=== PATIENT | male | born 1945 | race American Indian/Alaskan Native ===

== ENCOUNTER 2020-10-17 05:25 | Day surgery (SDC) | payer MEDICARE, OTHER ==
[~2020-10-17 05:25] MED LIST: Dextrose 5%-0.45% NaCl 1,000 ML IV SCH; Midazolam 1 MG/ML 2 ML SDV ONE; Sodium Chloride 0.9% 10 ML Syringe FLUSH PRN; fentaNYL 100 MCG/2 ML SDV ONE
[2020-10-17] MEDS ORDERED: Midazolam 1 MG/ML 2 ML SDV IV ONE ×3 (05:26→06:46)
[2020-10-17] MEDS ORDERED: fentaNYL 100 MCG/2 ML SDV IV ONE ×3 (05:26→06:44)
[2020-10-17] MEDS ORDERED: Dextrose 5%-0.45% NaCl 1,000 ML IV SCH (05:30)
--- NOTE | 2020-10-17 07:40 | OR ---
DATE: 10/17/2020 PROCEDURE PERFORMED: Esophagogastroduodenoscopy and multiple pinch biopsies. INSTRUMENT USED: [id number]-HQ190 Olympus video panendoscope. PREMEDICATIONS: No oral or topical anesthesia used. Fentanyl 100 mcg intravenous, Versed 2 mg intravenous. Nasal O2 cannula. The procedure was done under pulse oximetry, BP recording, and bus monitor. INDICATION: The patient with multiple illnesses, on numerous medications and recent CT suggestive of thickened esophageal wall, malignancy under consideration. Esophagogastroduodenoscopy is performed for detection of any active erosive lesions, Almanzar esophagus and/or malignancy also under consideration, H pylori status to be determined, endoscopic hemostasis therapy if needed. DESCRIPTION OF PROCEDURE: The scope was passed with ease. Adequate visualization of the esophagus was made from proximal to distal areas. No upper esophageal lesions identified. No distal esophageal stricture. No uphill or downhill esophageal varices. No Betzy-Minor tear. No evidence of erosive esophagitis by [place] criteria. No esophageal polyp or tumor mass identified. Z-line was seen at around 40 cm distal to the oral verge. No proximal gastric varices noted. Gastric fundus examination by retroflexion showed no polypoid lesions. No gastric ulcer, malignant mass, or vascular ectasia identified. Duodenal bulb showed no ulcer. Visualized second part of the duodenum was unremarkable. Multiple pinch biopsies were taken from the gastric antrum and proximal body and sent for PyloriTek test for H pylori, and if negative in an hour, the tissue is to be sent for histopathology. No bleeding was noted from any of the visualized areas at the completion of examination. Photographs were taken of the duodenal bulb, gastric antrum, fundus, and distal esophagus. IMPRESSION: Normal study. The patient tolerated the procedure well. [facility] /[id number]
--- NOTE | 2020-10-17 08:34 | LETTER ---
10/17/2020 RE: KAVON HAINES : 1945 Oscar Brown MD [address] [place] [address] Brown: Mr. Kavon Haines had esophagogastroduodenoscopy done this morning, and he tolerated the procedure well. I herewith send a copy of the endoscopy note and photographs for your review. Thank you. Sincerely, [facility] /[id number]
--- NOTE | 2020-10-17 08:53 | LETTER ---
10/17/2020 RE: RUTHY HAINES : 1945 Dee Modi PA-C [address] [place] [address] Dear Ms. Modi: Mr. Ruthy Haines had esophagogastroduodenoscopy done this morning, and he tolerated the procedure well. I herewith send a copy of the endoscopy note and photographs for your review. Thank you. Sincerely, [facility] /[id number]
[2020-10-17 09:29] VITALS: BP 137/65; PULSE 69
== END 2020-10-17 08:58 | disposition home or self-care (01) ==
LOC: DL.ENDO 05:25
PROVIDERS: ATTEND Internal Medicine Gastroenterology
DX: K22.8 Other specified diseases of esophagus (principal); E66.09 Other obesity due to excess calories; E78.5 Hyperlipidemia, unspecified; I25.10 Atherosclerotic heart disease of native coronary artery without angina pectoris; E11.43 Type 2 diabetes mellitus with diabetic autonomic (poly)neuropathy; K31.84 Gastroparesis; E11.22 Type 2 diabetes mellitus with diabetic chronic kidney disease; I48.91 Unspecified atrial fibrillation; I12.9 Hypertensive chronic kidney disease with stage 1 through stage 4 chronic kidney disease, or unspecified chronic kidney disease; N18.9 Chronic kidney disease, unspecified; J44.9 Chronic obstructive pulmonary disease, unspecified; G47.33 Obstructive sleep apnea (adult) (pediatric); Z79.02 Long term (current) use of antithrombotics/antiplatelets; Z87.891 Personal history of nicotine dependence; Z95.1 Presence of aortocoronary bypass graft; Z86.010 Personal history of colon polyps; Z68.37 Body mass index [BMI] 37.0-37.9, adult
CPT/HCPCS: 87077; J2250; J3010; J7042

== ENCOUNTER 2021-05-16 13:48 | Emergency (ER) | payer MEDICARE, OTHER ==
[2021-05-16] MEDS ORDERED: Sodium Chloride 0.9% 10 ML Syringe FLUSH PRN (14:29)
[2021-05-16] MEDS ORDERED: Albuterol 0.083% 2.5 MG/3 ML Neb Soln NEB ONE ×2 (14:32→15:32)
[2021-05-16 14:37] VITALS: BP 135/67; PULSE 95
--- NOTE | 2021-05-16 14:40 | EDM.PDOC ---
ED HPI GENERAL MEDICAL PROBLEM - General Stated Complaint: HISTORY OF BREATHING ISSUES / COPD Time Seen by Provider: 05/16/21 14:35 Source of Information: Reports: Patient History Limitations: Reports: No Limitations - History of Present Illness INITIAL COMMENTS - FREE TEXT/NARRATIVE: 76 y/o M c/o Sob for unknown exact amount of time at least the last several days. Has not been feverish or coughing. Has not been exposed to COVID. Has not been around anyone sick. Is fully vaccinated with Moderna. Hx of COPD, CHF, Type II diabetes. Is on metformin. States he has been eating and drinking ok. Denies vision prob, cp, abd pn, pelvic pain, difficulty voiding, ext pain, leg swelling, recent trauma, drugs, etoh. - Related Data Allergies Allergy/AdvReac Type Severity Reaction Status Date / Time tiotropium Allergy Other Verified 10/17/20 06:06 [From Spiriva with HandiHaler] Home Meds: Home Meds Clopidogrel [Plavix] 75 mg PO DAILY 09/17/13 [History] Insulin Detemir [Levemir] 25 unit SQ BID 09/17/13 [History] Simvastatin [Zocor] 10 mg PO BEDTIME 09/17/13 [History] Multivitamin [Multi-Vitamin Daily] 1 tab PO DAILY 01/05/15 [History] Albuterol/Ipratropium [Combivent Respimat] 2 puff INH ASDIRECTED 10/09/20 [History] Bumetanide [Bumex] 1 mg PO DAILY 10/09/20 [History] Formoterol [Perforomist] 2 puff INH BID 10/09/20 [History] Insulin Aspart [NovoLOG] 62 - 64 units SQ BID 10/09/20 [History] Ipratropium/Albuterol Sulfate [Iprat-Albut 0.5-3(2.5) mg/3 ml] 2 puff INH Q6H PRN 10/09/20 [History] Pioglitazone [Actos] 15 mg PO DAILY 10/09/20 [History] Saxagliptin HCl [Onglyza] 5 mg PO DAILY 10/09/20 [History] metFORMIN HCl [Metformin HCl] 500 mg PO BIDMEALS 10/09/20 [History] Alogliptin Benzoate [Alogliptin] 25 mg PO DAILY 10/17/20 [History] Iron Polysaccharide Complex [Poly-Iron] 150 mg PO BID 10/17/20 [History] Past Medical History HEENT History: Reports: Hard of Hearing, Impaired Vision, Retinal Detachment, Other (See Below) Other HEENT History: wears glasses Cardiovascular History: Reports: Afib, CAD, Heart Failure, High Cholesterol, Hypertension Respiratory History: Reports: Asthma, COPD, Sleep Apnea, Other (See Below) Other Respiratory History: pulmonary nodules Gastrointestinal History: Reports: None Genitourinary History: Reports: None Musculoskeletal History: Reports: None Neurological History: Reports: CVA Psychiatric History: Reports: None Endocrine/Metabolic History: Reports: Diabetes, Type I, Diabetes, Type II, Obesity/BMI 30+ Hematologic History: Reports: Blood Transfusion(s) Immunologic History: Reports: None Oncologic (Cancer) History: Reports: None Dermatologic History: Reports: Other (See Below) Other Dermatologic History: [id number] SYNDROME - Infectious Disease History Infectious Disease History: Reports: Chicken Pox, Mumps - Past Surgical History Head Surgeries/Procedures: Reports: None HEENT Surgical History: Reports: Cataract Surgery, Detached Retina Cardiovascular Surgical History: Reports: Coronary Artery Bypass GI Surgical History: Reports: Colonoscopy Male Surgical History: Reports: None Musculoskeletal Surgical History: Reports: None Social & Family History - Family History Family Medical History: No Pertinent Family History - Caffeine Use Caffeine Use: Reports: Coffee - Living Situation & Occupation Living situation: Reports: with Family Occupation: Disabled ED ROS GENERAL - Review of Systems Review Of Systems: Comprehensive ROS is negative, except as noted in HPI. Constitutional: Reports: No Symptoms HEENT: Reports: No Symptoms Respiratory: Reports: No Symptoms Cardiovascular: Reports: No Symptoms Endocrine: Reports: No Symptoms GI/Abdominal: Reports: No Symptoms : Reports: No Symptoms Musculoskeletal: Reports: No Symptoms Skin: Reports: No Symptoms Neurological: Reports: No Symptoms Psychiatric: Reports: No Symptoms Hematologic/Lymphatic: Reports: No Symptoms Immunologic: Reports: No Symptoms ED EXAM, GENERAL - Physical Exam Exam: See Below Exam Limited By: No Limitations General Appearance: Alert, Mild Distress Eye Exam: Bilateral Eye: PERRL Nose: Normal Inspection, Normal Mucosa, No Blood Throat/Mouth: Other (dry oropharynx, tongue dry and furrowed) Head: Atraumatic, Normocephalic Neck: Supple, Non-Tender. No: Lymphadenopathy (L), Lymphadenopathy (R) Respiratory/Chest: No Accessory Muscle Use, Chest Non-Tender, Other (tachypneic, diminished lung sounds throughout) Cardiovascular: Normal Peripheral Pulses, Regular Rate, Rhythm GI/Abdominal: Other (obese abd, non tender to palpation) (Male) Exam: Deferred Rectal (Males) Exam: Deferred Back Exam: Normal Inspection, Full Range of Motion Extremities: Normal Inspection, Normal Range of Motion, Non-Tender, Normal Capillary Refill, No Pedal Edema Neurological: Alert, Oriented, Normal Cognition Psychiatric: Normal Affect, Normal Mood Skin Exam: Warm, Dry, Intact #1 Interpretation EKG Date: 05/16/21 Time: 14:45 Rhythm: Other (sinus rhythm) [place]: Normal P-Wave: Present QRS: RBBB ST-T: Normal QT: Normal Course - Vital Signs Last Recorded V/S: Last Vital Signs Temp 99.5 F 05/16/21 14:34 Pulse 95 05/16/21 14:34 Resp 22 H 05/16/21 14:34 BP 135/67 05/16/21 14:34 Pulse Ox 80 L 05/16/21 14:34 - Orders/Labs/Meds Orders: Active Orders 24 hr Category Date Time Status Peripheral IV Insertion Adult [OM.PC] Routine Oth 05/16/21 14:29 Ordered Labs: Laboratory Tests 05/16/21 05/16/21 05/16/21 Range/Units 14:31 14:50 14:50 WBC 9.8 (5.0-10.0) 10^3/uL RBC 4.02 L (4.6-6.2) 10^6/uL Hgb 12.0 L D (14.0-18.0) g/dL Hct 37.7 L (40.0-54.0) % MCV 93.8 D (80-100) fL MCH 29.9 (27.0-34.0) pg MCHC 31.8 L (33.0-35.0) g/dL Plt Count 221 D (150-450) 10^3/uL Neut % (Auto) 79.4 H (42.2-75.2) % Lymph % (Auto) 7.5 L (20.5-50.1) % [place] % (Auto) 12.5 H (2-8) % Eos % (Auto) 0.4 L (1.0-3.0) % Baso % (Auto) 0.2 (0.0-1.0) % Sodium 140 (136-145) mmol/L Potassium 3.7 (3.5-5.1) mmol/L Chloride 100 (98-107) mmol/L Carbon Dioxide 29 (21-32) mmol/L Anion Gap 14.7 H (7-13) mEq/L BUN 15 (7-18) mg/dL Creatinine 1.15 (0.70-1.30) mg/dL Est Cr Clr Drug Dosing 58.19 mL/min Estimated GFR (MDRD) > 60 BUN/Creatinine Ratio 13.0 (No establ ref range) Glucose 112 H (70-99) mg/dL Lactic Acid (0.4-2.0) mmol/L Calcium 8.4 L (8.5-10.1) mg/dL Magnesium 1.7 L (1.8-2.4) mg/dL Total Bilirubin 0.4 (0.2-1.0) mg/dL AST 47 H (15-37) U/L ALT 64 H (16-63) U/L Alkaline Phosphatase 76 (46-116) U/L C-Reactive Protein 8.8 H (0.0-0.9) mg/dL B-Natriuretic Peptide 94 (0-100) pg/ml Total Protein 7.9 (6.4-8.2) g/dL Albumin 3.1 L (3.4-5.0) g/dL Globulin 4.8 Albumin/Globulin Ratio 0.65 Influenza Type A RNA Positive H (NEGATIVE) Influenza Type B RNA Negative (NEGATIVE) SARS-CoV-2 RNA (JAVIER) Negative (NEGATIVE) 05/16/21 Range/Units 14:50 WBC (5.0-10.0) 10^3/uL RBC (4.6-6.2) 10^6/uL Hgb (14.0-18.0) g/dL Hct (40.0-54.0) % MCV (80-100) fL MCH (27.0-34.0) pg MCHC (33.0-35.0) g/dL Plt Count (150-450) 10^3/uL Neut % (Auto) (42.2-75.2) % Lymph % (Auto) (20.5-50.1) % [place] % (Auto) (2-8) % Eos % (Auto) (1.0-3.0) % Baso % (Auto) (0.0-1.0) % Sodium (136-145) mmol/L Potassium (3.5-5.1) mmol/L Chloride (98-107) mmol/L Carbon Dioxide (21-32) mmol/L Anion Gap (7-13) mEq/L BUN (7-18) mg/dL Creatinine (0.70-1.30) mg/dL Est Cr Clr Drug Dosing mL/min Estimated GFR (MDRD) BUN/Creatinine Ratio (No establ ref range) Glucose (70-99) mg/dL Lactic Acid 1.1 (0.4-2.0) mmol/L Calcium (8.5-10.1) mg/dL Magnesium (1.8-2.4) mg/dL Total Bilirubin (0.2-1.0) mg/dL AST (15-37) U/L ALT (16-63) U/L Alkaline Phosphatase (46-116) U/L C-Reactive Protein (0.0-0.9) mg/dL B-Natriuretic Peptide (0-100) pg/ml Total Protein (6.4-8.2) g/dL Albumin (3.4-5.0) g/dL Globulin Albumin/Globulin Ratio Influenza Type A RNA (NEGATIVE) Influenza Type B RNA (NEGATIVE) SARS-CoV-2 RNA (JAVIER) (NEGATIVE) Meds: Medications Discontinued Medications Generic Name Dose Route Start Last Admin Trade Name Freq PRN Reason Stop Dose Admin Albuterol 5 mg 05/16/21 14:32 05/16/21 14:50 Albuterol 0.083% 2.5 Mg/3 Ml Neb [address] [facility] 05/16/21 14:33 5 mg ONETIME ONE Administration Albuterol 5 mg 05/16/21 15:32 05/16/21 15:49 Albuterol 0.083% 2.5 Mg/3 M[address] [facility] 05/16/21 15:33 5 mg ONETIME ONE Administration Sodium Chloride 10 ml 05/16/21 14:29 05/16/21 14:58 Sodium Chloride 0.9% 10 Ml Syringe FLUSH 10 ml ASDIRECTED PRN Administration Keep Vein Open - Re-Assessments/Exams Free Text/Narrative Re-Assessment/Exam: 05/16/21 15:52 The pt is positive for influenza and has a mild copd exacerbation. His oxygen saturation has improved with albuterol nebs and he feels safe to go home. As the exact onset of influeza symptoms cannot be determined I will not ut the pt on Tamiflu. I explained the exam and lab results with the pt and he verbalized understanding. I instructed him to continue his neb treatments at home and to follow up in clinic or return to the ER if there are any new symptoms or concerns. Departure - Departure Time of Disposition: 15:55 Disposition: Home, Self-Care 01 Condition: Fair Clinical Impression: Influenza A, COPD exacerbation - Discharge Information *PRESCRIPTION DRUG MONITORING PROGRAM REVIEWED*: Not Applicable *COPY OF PRESCRIPTION DRUG MONITORING REPORT IN PATIENT [place]: Not Applicable Instructions: Influenza, Adult Forms: ED Department Discharge Additional Instructions: You have influenza A and had a mild copd exacerbation. Use tylenol and Ibuprofen for fever and pain control as needed. Drink plenty of fluids to maintain hydration. Continue to use your albuterol nebs at home. If any new symptoms or concerns develop contact your primary care facility or return to the ER. Sepsis Event Note (ED) - Focused Exam Vital Signs: Vital Signs Temp Pulse Resp BP Pulse Ox 05/16/21 14:34 99.5 F 95 22 H 135/67 80 L - My Orders Last 24 Hours: My Active Orders 05/16/21 14:29 Peripheral IV Insertion Adult [OM.PC] Routine - Assessment/Plan Last 24 Hours: My Active Orders 05/16/21 14:29 Peripheral IV Insertion Adult [OM.PC] Routine
--- NOTE | 2021-05-16 15:14 | CR ---
PROCEDURE INFORMATION: Exam: XR Chest Exam date and time: 05/16/2021 2:56 PM Age: 76 years old Clinical indication: Shortness of breath; Additional info: SOB TECHNIQUE: Imaging protocol: XR of the chest. Views: 1 view. COMPARISON: CT Chest wo Cont 10/22/2020 1:26 PM FINDINGS: Lungs: Pleural thickening right lower lung. Mild bilateral interstitial prominence worse on the right. Pleural spaces: See "Lungs" finding. Heart/Mediastinum: Unremarkable. No cardiomegaly. Bones/joints: Sternotomy. IMPRESSION: Mild bilateral interstitial prominence, worse on the right could be due to infiltrate or effusion.
[2021-05-16 15:18] LABS: ANION GAP 14.7 mEq/L (7-13); CHLORIDE,CL 100 mmol/L (98-107); SODIUM,NA 140 mmol/L (136-145)
[2021-05-16 15:20] LABS: CORONAVIRUS COVID-19 NAA NEGATIVE (NEGATIVE)
== END 2021-05-16 16:06 | disposition home or self-care (01) ==
LOC: DL.ED 13:48
DX: J10.1 Influenza due to other identified influenza virus with other respiratory manifestations (principal); J44.1 Chronic obstructive pulmonary disease with (acute) exacerbation; I48.91 Unspecified atrial fibrillation; I11.0 Hypertensive heart disease with heart failure; I50.9 Heart failure, unspecified; E11.9 Type 2 diabetes mellitus without complications; E66.9 Obesity, unspecified; Z86.73 Personal history of transient ischemic attack (TIA), and cerebral infarction without residual deficits; Z68.30 Body mass index [BMI] 30.0-30.9, adult; Z88.8 Allergy status to other drugs, medicaments and biological substances; Z79.02 Long term (current) use of antithrombotics/antiplatelets; Z79.4 Long term (current) use of insulin; Z20.822 Contact with and (suspected) exposure to COVID-19
CPT/HCPCS: 0240U; 36415; 71045; 80053; 83605; 83735; 83880; 85025; 86140; 93005; 94640; 99285; J7613-GY

== ENCOUNTER 2021-07-26 13:13 | Emergency (ER) | payer MEDICARE, OTHER ==
[2021-07-26 13:45] VITALS: BP 167/76; PULSE 80
[2021-07-26 14:08] LABS: CORONAVIRUS COVID-19 NAA POSITIVE (NEGATIVE)
[2021-07-26] MEDS ORDERED: Benzocaine 20% Topical Spray UD MUCMEM ONE (14:29)
== END 2021-07-26 14:59 | disposition home or self-care (01) ==
LOC: DL.ED 13:13
DX: J02.9 Acute pharyngitis, unspecified (principal); I48.91 Unspecified atrial fibrillation; I25.10 Atherosclerotic heart disease of native coronary artery without angina pectoris; E11.9 Type 2 diabetes mellitus without complications; J44.9 Chronic obstructive pulmonary disease, unspecified; E66.9 Obesity, unspecified; Z68.31 Body mass index [BMI] 31.0-31.9, adult; Z86.73 Personal history of transient ischemic attack (TIA), and cerebral infarction without residual deficits; Z88.8 Allergy status to other drugs, medicaments and biological substances; Z79.4 Long term (current) use of insulin; Z79.02 Long term (current) use of antithrombotics/antiplatelets; Z79.899 Other long term (current) drug therapy; Z20.822 Contact with and (suspected) exposure to COVID-19
CPT/HCPCS: 0240U; 87081; 87430; 99283; A9270

== ENCOUNTER 2021-12-29 09:59 | Emergency (ER) | payer MEDICARE, OTHER ==
[2021-12-29 10:21] VITALS: BP 133/53
[2021-12-29] MEDS ORDERED: Albuterol 0.083% 2.5 MG/3 ML Neb Soln NEB ONE (10:26)
[2021-12-29] MEDS ORDERED: Magnesium Sulfate/Water 2 GM in Premix Bag 1 BAG IV ONE (10:33)
[2021-12-29] MEDS ORDERED: methylPREDNISolone Sodium Succinate 125 MG/2 ML SDV IVPUSH ONE (10:34)
[2021-12-29 10:56] VITALS: PULSE 77
== END 2021-12-29 11:58 | disposition home or self-care (01) ==
LOC: DL.ED 09:59
DX: J44.1 Chronic obstructive pulmonary disease with (acute) exacerbation (principal); I48.91 Unspecified atrial fibrillation; I25.10 Atherosclerotic heart disease of native coronary artery without angina pectoris; I50.9 Heart failure, unspecified; E78.00 Pure hypercholesterolemia, unspecified; I10 Essential (primary) hypertension; E11.9 Type 2 diabetes mellitus without complications; E66.9 Obesity, unspecified; Z68.37 Body mass index [BMI] 37.0-37.9, adult; Z88.8 Allergy status to other drugs, medicaments and biological substances; Z79.02 Long term (current) use of antithrombotics/antiplatelets; Z86.73 Personal history of transient ischemic attack (TIA), and cerebral infarction without residual deficits; Z20.822 Contact with and (suspected) exposure to COVID-19
CPT/HCPCS: 36415; 71046; 80053; 85025; 86140; 94640; 96365; 96375; 99285; J2930; J3475; U0002; J7613-GY

== ENCOUNTER 2023-07-26 10:20 | Inpatient (IN) | payer MEDICARE, OTHER ==
[2023-07-26 10:56] LABS: BASOPHILS PERCENT AUTO 0.3 % (0.0-1.0); EOSINOPHILS PERCENT AUTO 1.5 % (1.0-3.0); HEMATOCRIT 38.5 % (40.0-54.0); HEMOGLOBIN 12.2 g/dL (14.0-18.0); LYMPHOCYTES PERCENT AUTO 10.1 % (20.5-50.1); MEAN CORPUSCULAR HEMOGLOBIN 30.3 pg (27.0-34.0); MEAN CORPUSCULAR HGB CONC 31.7 g/dL (33.0-35.0); MEAN CORPUSCULAR VOLUME 95.5 fL (80-100); MONOCYTES PERCENT AUTO 11.5 % (2-8); NEUTROPHILS PERCENT AUTO 76.6 % (42.2-75.2); PLATELET COUNT,PLT 212 10^3/uL (150-450); RED BLOOD CELL COUNT 4.03 10^6/uL (4.6-6.2); WHITE BLOOD CELL COUNT,WBC 8.8 10^3/uL (5.0-10.0)
[2023-07-26] MEDS: Albuterol 0.083% 2.5 MG/3 ML Neb Soln NEB ONE (10:59)
[2023-07-26 11:16] LABS: A/G RATIO 0.8; ALANINE AMINOTRANSFERASE,ALT 35 U/L (16-63); ALBUMIN 3.5 g/dL (3.4-5.0); ALKALINE PHOSPHATASE 98 U/L (46-116); ANION GAP 14.9 mEq/L (7-13); ASPARTATE AMNIOTRANSFERASE,AST 24 U/L (15-37); BILIRUBIN TOTAL 0.5 mg/dL (0.2-1.0); BLOOD UREA NITROGEN,BUN 20 mg/dL (7-18); BUN/CREATININE RATIO 15.3 (No establ ref range); CALCIUM 8.1 mg/dL (8.5-10.1); CARBON DIOXIDE,CO2 28 mmol/L (21-32); CHLORIDE,CL 101 mmol/L (98-107); CREATININE 1.31 mg/dL (0.70-1.30); ESTIMATED GFR 56 mL/min (>=60); GLUCOSE RANDOM 175 mg/dL (70-99); POTASSIUM,K 3.9 mmol/L (3.5-5.1); PROTEIN TOTAL,TP 7.7 g/dL (6.4-8.2); SODIUM,NA 140 mmol/L (136-145)
[2023-07-26 11:52] LABS: CORONAVIRUS COVID-19 NAA NEGATIVE (NEGATIVE); INFLUENZA A NAA NEGATIVE (NEGATIVE); INFLUENZA B NAA NEGATIVE (NEGATIVE); RESPIRATORY SYNCYTIAL VIR NAA POSITIVE (NEGATIVE)
[2023-07-26] MEDS ORDERED: Ondansetron 4 MG/2 ML SDV IVPUSH PRN (14:20)
[2023-07-26] MEDS ORDERED: HYDROmorphone 0.5 MG/0.5 ML Syringe IVPUSH PRN (14:20)
[2023-07-26] MEDS ORDERED: Sennosides/Docusate Sodium 50-8.6 MG Tab PO PRN (14:20)
[2023-07-26] MEDS ORDERED: Acetaminophen 325 MG Tab PO PRN (14:20)
[2023-07-26] MEDS ORDERED: Albuterol/Ipratropium 3.0-0.5 MG/3 ML Neb Soln NEB PRN (14:20)
[2023-07-26] MEDS ORDERED: Naloxone 2 MG/2 ML Syringe IVPUSH PRN (14:20)
[2023-07-26] MEDS ORDERED: Magnesium Hydroxide 400 MG/5 ML Susp 30 ML Cup PO PRN (14:20)
[2023-07-26] MEDS ORDERED: Sodium Chloride 0.9% 10 ML Syringe FLUSH PRN (14:20)
[2023-07-26] MEDS ORDERED: Polyethylene Glycol 3350 Powder 17 GM Packet PO PRN (14:20)
[2023-07-26] MEDS ORDERED: traMADol 50 MG Tab PO PRN (14:30)
[2023-07-26] MEDS ORDERED: Magnesium Sulfate/D5W 1 GM/100 ML BAG IV ONE (14:31)
[2023-07-26 14:56] LABS: C-REACTIVE PROTEIN 1.77 ng/dL (<=0.50)
[2023-07-26] MEDS ORDERED: guaiFENesin/Dextromethorphan 100-10 MG/5 ML Soln 5 ML Cup PO PRN (15:26)
[2023-07-26] MEDS: methylPREDNISolone Sodium Succinate 125 MG/2 ML SDV IVPUSH ONE (17:15)
[2023-07-26] MEDS: Furosemide 20 MG/2 ML VIAL IVPUSH ONE (17:16)
[2023-07-26] MEDS: guaiFENesin 600 MG Tab.ER PO ONE (17:18)
[2023-07-26] MEDS: Sodium Chloride 0.9% 1,000 ML IV SCH (17:19)
[2023-07-26] MEDS: Magnesium Sulfate/D5W 1 GM IV ONE (17:24)
[2023-07-26] MEDS: methylPREDNISolone Sodium Succinate 125 MG/2 ML SDV ONE (18:18)
[2023-07-26] MEDS: Formoterol/Mometasone 200-5 MCG 8.8 GM Inhaler IH SCH (18:29)
[2023-07-26] MEDS: Azithromycin 500 MG in Sodium Chloride 0.9% 250 ML IV ONE (18:31)
[2023-07-26] MEDS: Albuterol/Ipratropium 3.0-0.5 MG/3 ML Neb Soln NEB SCH (18:33)
[2023-07-26] MEDS: Insulin Glarg,Human.Rec.Analog 100 Unit/ML 10 ML Vial SUBCUT SCH (20:54)
[2023-07-26] MEDS: methylPREDNISolone Sodium Succinate 40 MG/1 ML SDV IVPUSH SCH (20:56)
[2023-07-26] MEDS: guaiFENesin 600 MG Tab.ER PO SCH (20:56)
[2023-07-26] MEDS: Iron Polysaccharides Complex 150 MG Cap PO SCH (20:56)
[2023-07-26] MEDS: Sodium Chloride 0.9% 10 ML Syringe FLUSH SCH (20:57)
[2023-07-26] MEDS ORDERED: Non-Formulary Medication 1 Each (Formoterol [Perforomist] 20 MCG/2 ML Neb) INH SCH (21:00)
[2023-07-26] MEDS ORDERED: Oxymetazoline 0.05% Nasal Spray 30 ML Bottle NAS PRN (21:00)
[2023-07-26] MEDS ORDERED: Glucagon,Human Recombinant 1 MG Vial IM PRN (21:33)
[2023-07-26] MEDS ORDERED: 50% Dextrose in Water 50 ML Syringe IVPUSH PRN (21:33)
[2023-07-27] MEDS ORDERED: Tiotropium Bromide 4 GM Inhalation Spray (2.5mcg/1 dose; 10 doses) INH SCH (06:00)
[2023-07-27 06:36] LABS: BASOPHILS PERCENT AUTO 0.1 % (0.0-1.0); HEMATOCRIT 37.6 % (40.0-54.0); HEMOGLOBIN 11.9 g/dL (14.0-18.0); LYMPHOCYTES PERCENT AUTO 7.7 % (20.5-50.1); MEAN CORPUSCULAR HEMOGLOBIN 30.3 pg (27.0-34.0); MEAN CORPUSCULAR HGB CONC 31.6 g/dL (33.0-35.0); MEAN CORPUSCULAR VOLUME 95.7 fL (80-100); MONOCYTES PERCENT AUTO 2.2 % (2-8); PLATELET COUNT,PLT 218 10^3/uL (150-450); RED BLOOD CELL COUNT 3.93 10^6/uL (4.6-6.2); WHITE BLOOD CELL COUNT,WBC 8.7 10^3/uL (5.0-10.0)
[2023-07-27] MEDS: Azithromycin 500 MG in Sodium Chloride 0.9% 250 ML IV SCH (08:42)
[2023-07-27] MEDS: Loratadine 10 MG Tab PO SCH (08:45)
[2023-07-27] MEDS: Clopidogrel 75 MG Tab PO SCH (08:46)
[2023-07-27] MEDS: Simvastatin 10 MG Tab PO SCH (08:46)
[2023-07-27] MEDS: Bumetanide 1 MG Tab PO SCH (08:47)
[2023-07-27] MEDS: Multivitamin Tab PO SCH (08:48)
[2023-07-27] MEDS: Insulin Lispro 100 Units/ML 3 ML Vial SUBCUT SCH (08:51)
[2023-07-27] MEDS: Patient's Own Medication 1 Each PO SCH ×3 (10:12→10:13)
[2023-07-27] MEDS: ROFLUMILAST 500 MCG PO SCH (10:18)
[2023-07-27] MEDS ORDERED: Azithromycin 500 MG in Sodium Chloride 0.9% 250 ML IV SCH (21:00)
[2023-07-28 06:57] LABS: ALBUMIN 3.3 g/dL (3.4-5.0); ANION GAP 13.1 mEq/L (7-13); BILIRUBIN TOTAL 0.4 mg/dL (0.2-1.0); CREATININE 1.22 mg/dL (0.70-1.30); EST CRCL DRUG DOSING (CG) 52.35 mL/min; MAGNESIUM 2.5 mg/dL (1.8-2.4); POTASSIUM,K 5.1 mmol/L (3.5-5.1); PROTEIN TOTAL,TP 7.6 g/dL (6.4-8.2)
[2023-07-28 07:05] LABS: HEMATOCRIT 37.1 % (40.0-54.0); HEMOGLOBIN 11.3 g/dL (14.0-18.0); MEAN CORPUSCULAR HEMOGLOBIN 29.7 pg (27.0-34.0); MEAN CORPUSCULAR HGB CONC 30.5 g/dL (33.0-35.0); MEAN CORPUSCULAR VOLUME 97.6 fL (80-100); PLATELET COUNT,PLT 242 10^3/uL (150-450); WHITE BLOOD CELL COUNT,WBC 16.9 10^3/uL (5.0-10.0)
[2023-07-28 07:07] LABS: A/G RATIO 0.77
[2023-07-28 07:29] LABS: LYMPHOCYTES PERCENT AUTO 6.5 % (20.5-50.1); MONOCYTES PERCENT AUTO 7.1 % (2-8); NEUTROPHILS PERCENT AUTO 86.3 % (42.2-75.2)
[2023-07-28 07:30] LABS: BASOPHILS PERCENT AUTO 0.1 % (0.0-1.0)
[2023-07-28 07:58] LABS: BAND PERCENT MAN 5 %; LYMPHOCYTES PERCENT MAN 4 % (20-50); MONOCYTES PERCENT MAN 3 % (2-8); SEG NEUTROPHILS PERCENT MAN 87 % (42-75)
[2023-07-28 08:20] LABS: ATYPICAL LYMPHOCYTES FEW
[2023-07-28] MEDS: Empagliflozin 25 MG Tab PO SCH (10:35)
[2023-07-28 11:23] VITALS: BP 156/82; PULSE 93
[2023-07-28] MEDS ORDERED: methylPREDNISolone Sodium Succinate 40 MG/1 ML SDV IVPUSH SCH (14:00)
== END 2023-07-28 12:14 | disposition home or self-care (01) | DRG 189 ==
LOC: DL.ED 10:20 → DL.MS 12:36 → DL.ED 13:25 → OBSVTOIN 07-27 15:04
PROVIDERS: ADMIT Internal Medicine; ATTEND Internal Medicine
DX: J96.01 Acute respiratory failure with hypoxia (principal); I13.0 Hypertensive heart and chronic kidney disease with heart failure and stage 1 through stage 4 chronic kidney disease, or unspecified chronic kidney disease; J44.1 Chronic obstructive pulmonary disease with (acute) exacerbation; J22 Unspecified acute lower respiratory infection; Z66 Do not resuscitate; H91.90 Unspecified hearing loss, unspecified ear; I48.91 Unspecified atrial fibrillation; I25.10 Atherosclerotic heart disease of native coronary artery without angina pectoris; R09.02 Hypoxemia; B97.4 Respiratory syncytial virus as the cause of diseases classified elsewhere; E66.9 Obesity, unspecified; H54.62 Unqualified visual loss, left eye, normal vision right eye; E11.42 Type 2 diabetes mellitus with diabetic polyneuropathy; E11.319 Type 2 diabetes mellitus with unspecified diabetic retinopathy without macular edema; G47.33 Obstructive sleep apnea (adult) (pediatric); N18.30 Chronic kidney disease, stage 3 unspecified; E11.65 Type 2 diabetes mellitus with hyperglycemia; Z95.1 Presence of aortocoronary bypass graft; I11.0 Hypertensive heart disease with heart failure; Z79.02 Long term (current) use of antithrombotics/antiplatelets; I50.9 Heart failure, unspecified; Z79.4 Long term (current) use of insulin; Z79.51 Long term (current) use of inhaled steroids; E78.00 Pure hypercholesterolemia, unspecified; Z86.73 Personal history of transient ischemic attack (TIA), and cerebral infarction without residual deficits; I25.810 Atherosclerosis of coronary artery bypass graft(s) without angina pectoris; Z98.49 Cataract extraction status, unspecified eye; Z68.37 Body mass index [BMI] 37.0-37.9, adult; Z98.890 Other specified postprocedural states; Z87.891 Personal history of nicotine dependence; J44.9 Chronic obstructive pulmonary disease, unspecified; E10.9 Type 1 diabetes mellitus without complications; Z86.16 Personal history of COVID-19; Z79.84 Long term (current) use of oral hypoglycemic drugs; Z79.899 Other long term (current) drug therapy; Z88.8 Allergy status to other drugs, medicaments and biological substances
CPT/HCPCS: 0241U; 36415; 71045; 71046; 80053; 82947; 83735; 85025; 86140; 87070; 87077; 87205; 93005; 93010; 94010; 94060; 94640; 94667; 94668; 94760; 96365; 96366; 96367; 96375; 96376; 99223; 99232; 99238; 99284; 99285; A9270-GY; G0378; J0456; J1815-GY; J1940; J2920; J2930; J3475; J3490; J7030; J7050; J7613-GY; J7620-GY

== ENCOUNTER 2023-07-30 17:48 | Inpatient (IN) | payer MEDICARE, OTHER ==
[2023-07-30 18:15] LABS: HEMATOCRIT 38.5 % (40.0-54.0); MEAN CORPUSCULAR HEMOGLOBIN 29.9 pg (27.0-34.0); MEAN CORPUSCULAR HGB CONC 31.2 g/dL (33.0-35.0); PLATELET COUNT,PLT 257 10^3/uL (150-450); RED BLOOD CELL COUNT 4.01 10^6/uL (4.6-6.2); WHITE BLOOD CELL COUNT,WBC 11.5 10^3/uL (5.0-10.0)
[2023-07-30 18:28] LABS: BASOPHILS PERCENT AUTO 0.3 % (0.0-1.0); EOSINOPHILS PERCENT AUTO 0.2 % (1.0-3.0); LYMPHOCYTES PERCENT AUTO 14.1 % (20.5-50.1); MONOCYTES PERCENT AUTO 9.6 % (2-8); NEUTROPHILS PERCENT AUTO 75.8 % (42.2-75.2)
[2023-07-30] MEDS: Sodium Chloride 0.9% 10 ML Syringe FLUSH PRN (18:31)
[2023-07-30 18:39] LABS: ALBUMIN 3.1 g/dL (3.4-5.0); ANION GAP 13.2 mEq/L (7-13); BILIRUBIN TOTAL 0.4 mg/dL (0.2-1.0); CALCIUM 8.4 mg/dL (8.5-10.1); CREATININE 1.38 mg/dL (0.70-1.30); EST CRCL DRUG DOSING (CG) 45.54 mL/min; POTASSIUM,K 4.2 mmol/L (3.5-5.1); PROTEIN TOTAL,TP 7.2 g/dL (6.4-8.2)
[2023-07-30 18:42] LABS: A/G RATIO 0.76
[2023-07-30 18:48] LABS: BAND PERCENT MAN 5 %; LYMPHOCYTES PERCENT MAN 13 % (20-50); SEG NEUTROPHILS PERCENT MAN 80 % (42-75)
[2023-07-30 18:49] LABS: MONOCYTES PERCENT MAN 2 % (2-8)
[2023-07-30] MEDS ORDERED: 50% Dextrose in Water 50 ML Syringe IVPUSH PRN (18:54)
[2023-07-30] MEDS ORDERED: Glucagon,Human Recombinant 1 MG Vial IM PRN (18:54)
[2023-07-30] MEDS: Insulin Regular, Human 100 Units/ML 3 ML Vial IV ONE (18:57)
[2023-07-30 19:11] LABS: CORONAVIRUS COVID-19 NAA NEGATIVE (NEGATIVE); INFLUENZA A NAA NEGATIVE (NEGATIVE); INFLUENZA B NAA NEGATIVE (NEGATIVE); RESPIRATORY SYNCYTIAL VIR NAA NEGATIVE (NEGATIVE)
[2023-07-30] MEDS: Albuterol/Ipratropium 3.0-0.5 MG/3 ML Neb Soln NEB ONE (21:57)
[2023-07-30] MEDS ORDERED: Zolpidem 5 MG Tab PO PRN (22:42)
[2023-07-30] MEDS ORDERED: Naloxone 2 MG/2 ML Syringe IVPUSH PRN (22:42)
[2023-07-30] MEDS ORDERED: Acetaminophen 325 MG Tab PO PRN (22:42)
[2023-07-30] MEDS ORDERED: Acetaminophen/oxyCODONE 325-5 MG Tab PO PRN (22:42)
[2023-07-30] MEDS ORDERED: Ondansetron 4 MG/2 ML SDV IVPUSH PRN (22:42)
[2023-07-30] MEDS ORDERED: Sennosides/Docusate Sodium 50-8.6 MG Tab PO PRN (22:42)
[2023-07-30] MEDS ORDERED: Polyethylene Glycol 3350 Powder 17 GM Packet PO PRN (22:42)
[2023-07-30] MEDS ORDERED: Magnesium Hydroxide 400 MG/5 ML Susp 30 ML Cup PO PRN (22:42)
[2023-07-30] MEDS ORDERED: HYDROmorphone 0.5 MG/0.5 ML Syringe IVPUSH PRN (22:42)
[2023-07-30] MEDS ORDERED: hydrALAZINE 20 MG/ML SDV IVPUSH PRN (22:53)
[2023-07-30] MEDS ORDERED: Metoprolol Tartrate 5 MG/5 ML SDV IVPUSH PRN (22:53)
[2023-07-30] MEDS ORDERED: guaiFENesin/Dextromethorphan 100-10 MG/5 ML Soln 5 ML Cup PO PRN (22:57)
[2023-07-30] MEDS ORDERED: Melatonin 3 MG Tab PO PRN (23:01)
[2023-07-30 23:19] LABS: HEMOGLOBIN A1C 8.3 % (<5.7)
[2023-07-30] MEDS: Sodium Chloride 0.9% 500 ML IV SCH (23:32)
[2023-07-30] MEDS: Pantoprazole 40 MG Vial IVPUSH ONE (23:33)
[2023-07-30] MEDS: Bumetanide 1 MG/4 ML MDV IVPUSH ONE (23:33)
[2023-07-30] MEDS: Heparin Sodium 5,000 Units/ML Vial IVPUSH ONE (23:33)
[2023-07-30] MEDS: Dexamethasone 4 MG/ML SDV IVPUSH ONE (23:34)
[2023-07-30] MEDS: Insulin Glarg,Human.Rec.Analog 100 Unit/ML 10 ML Vial SUBCUT ONE (23:34)
[2023-07-30] MEDS: Sodium Chloride 0.9% 1,000 ML IV SCH (23:35)
[2023-07-30] MEDS: Aspirin 325 MG Tab PO ONE (23:35)
[2023-07-30] MEDS: guaiFENesin 600 MG Tab.ER PO ONE (23:35)
[2023-07-30] MEDS: Heparin Sodium/0.45% NaCl 25,000 UNITS/500 ML BAG IV SCH (23:37)
[2023-07-31] MEDS: Piperacillin/Tazobactam 4.5 GM in Sodium Chloride 0.9% 100 ML IV ONE (00:05)
[2023-07-31 01:08] LABS: LACTIC ACID 1.8 mmol/L (0.4-2.0)
[2023-07-31] MEDS: Albuterol/Ipratropium 3.0-0.5 MG/3 ML Neb Soln NEB PRN (01:48)
[2023-07-31] MEDS: Tiotropium Bromide 4 GM Inhalation Spray (2.5mcg/1 dose; 10 doses) INH SCH (05:24)
[2023-07-31] MEDS: Formoterol/Mometasone 200-5 MCG 8.8 GM Inhaler IH SCH (05:24)
[2023-07-31] MEDS: Pantoprazole 40 MG Tab.CR PO SCH (05:25)
[2023-07-31] MEDS: Piperacillin/Tazobactam 4.5 GM in Sodium Chloride 0.9% 100 ML IV SCH (05:25)
[2023-07-31 06:50] LABS: HEMATOCRIT 36.8 % (40.0-54.0); HEMOGLOBIN 11.6 g/dL (14.0-18.0); MEAN CORPUSCULAR HEMOGLOBIN 30.2 pg (27.0-34.0); MEAN CORPUSCULAR HGB CONC 31.5 g/dL (33.0-35.0); MEAN CORPUSCULAR VOLUME 95.8 fL (80-100); PLATELET COUNT,PLT 231 10^3/uL (150-450); RED BLOOD CELL COUNT 3.84 10^6/uL (4.6-6.2); WHITE BLOOD CELL COUNT,WBC 9.4 10^3/uL (5.0-10.0)
[2023-07-31 07:06] LABS: BASOPHILS PERCENT AUTO 0.2 % (0.0-1.0); EOSINOPHILS PERCENT AUTO 0.1 % (1.0-3.0); LYMPHOCYTES PERCENT AUTO 12.4 % (20.5-50.1); MONOCYTES PERCENT AUTO 5.3 % (2-8)
[2023-07-31 07:13] LABS: ALANINE AMINOTRANSFERASE,ALT 60 U/L (16-63); ALBUMIN 2.8 g/dL (3.4-5.0); ALKALINE PHOSPHATASE 67 U/L (46-116); ANION GAP 9.9 mEq/L (7-13); ASPARTATE AMNIOTRANSFERASE,AST 35 U/L (15-37); BILIRUBIN TOTAL 0.3 mg/dL (0.2-1.0); BLOOD UREA NITROGEN,BUN 23 mg/dL (7-18); CALCIUM 7.2 mg/dL (8.5-10.1); CARBON DIOXIDE,CO2 30 mmol/L (21-32); CHLORIDE,CL 103 mmol/L (98-107); CHOLESTEROL HDL 52 mg/dL (40-59); CHOLESTEROL LDL CALCULATED 46 mg/dL (0-100); CHOLESTEROL TOTAL 116 mg/dL (0-199); EST CRCL DRUG DOSING (CG) 62.84 mL/min; GLUCOSE RANDOM 213 mg/dL (70-99); MAGNESIUM 1.8 mg/dL (1.8-2.4); POTASSIUM,K 3.9 mmol/L (3.5-5.1); PROTEIN TOTAL,TP 6.6 g/dL (6.4-8.2); SODIUM,NA 139 mmol/L (136-145); TRIGLYCERIDES 88 mg/dL (0-149)
[2023-07-31 07:14] LABS: A/G RATIO 0.74; ESTIMATED GFR 78 mL/min (>=60)
[2023-07-31 07:15] LABS: C-REACTIVE PROTEIN < 0.50 ng/dL (<=0.50)
[2023-07-31 07:17] LABS: B-TYPE NATRIURETIC PEPTIDE,BNP 52 pg/ml (0-100)
[2023-07-31 07:57] LABS: LYMPHOCYTES PERCENT MAN 12 % (20-50); MONOCYTES PERCENT MAN 6 % (2-8); SEG NEUTROPHILS PERCENT MAN 82 % (42-75)
[2023-07-31] MEDS: Heparin Sodium 5,000 Units/ML Vial IVPUSH ONE ×2 (08:16→14:35)
[2023-07-31] MEDS: Bumetanide 1 MG/4 ML MDV IVPUSH ONE (08:26)
[2023-07-31] MEDS: Insulin Lispro 100 Units/ML 3 ML Vial SUBCUT SCH (08:30)
[2023-07-31] MEDS: Aspirin 81 MG Tab.EC PO SCH (08:38)
[2023-07-31] MEDS: guaiFENesin 600 MG Tab.ER PO SCH (08:38)
[2023-07-31] MEDS: Dexamethasone 4 MG Tab PO SCH (08:39)
[2023-07-31] MEDS: Saccharomyces Boulardii (Probiotic) 250 MG Cap PO SCH (08:39)
[2023-07-31] MEDS: Empagliflozin 25 MG Tab PO SCH (08:39)
[2023-07-31] MEDS: Loratadine 10 MG Tab PO SCH (08:39)
[2023-07-31] MEDS: Clopidogrel 75 MG Tab PO SCH (08:39)
[2023-07-31] MEDS: Insulin Glarg,Human.Rec.Analog 100 Unit/ML 10 ML Vial SUBCUT SCH (08:41)
[2023-07-31] MEDS: Iron Polysaccharides Complex 150 MG Cap PO SCH (08:47)
[2023-07-31] MEDS: Azithromycin 500 MG in Sodium Chloride 0.9% 250 ML IV SCH (09:46)
[2023-07-31] MEDS: Bumetanide 1 MG Tab PO SCH (15:56)
[2023-07-31] MEDS: Simvastatin 10 MG Tab PO SCH (20:08)
[2023-07-31] MEDS: hydrOXYzine HCl 25 MG Tab PO PRN (22:25)
[2023-08-01 06:44] LABS: HEMOGLOBIN 12.4 g/dL (14.0-18.0); MEAN CORPUSCULAR HEMOGLOBIN 30.2 pg (27.0-34.0); MEAN CORPUSCULAR HGB CONC 31.8 g/dL (33.0-35.0); MEAN CORPUSCULAR VOLUME 94.9 fL (80-100); PLATELET COUNT,PLT 262 10^3/uL (150-450); RED BLOOD CELL COUNT 4.11 10^6/uL (4.6-6.2); WHITE BLOOD CELL COUNT,WBC 12.5 10^3/uL (5.0-10.0)
[2023-08-01 06:50] LABS: BASOPHILS PERCENT AUTO 0.2 % (0.0-1.0); EOSINOPHILS PERCENT AUTO 0.6 % (1.0-3.0); LYMPHOCYTES PERCENT AUTO 19.3 % (20.5-50.1); MONOCYTES PERCENT AUTO 9.7 % (2-8); NEUTROPHILS PERCENT AUTO 70.2 % (42.2-75.2)
[2023-08-01 06:55] LABS: ALANINE AMINOTRANSFERASE,ALT 70 U/L (16-63); ALBUMIN 3.2 g/dL (3.4-5.0); ALKALINE PHOSPHATASE 63 U/L (46-116); ANION GAP 11.5 mEq/L (7-13); ASPARTATE AMNIOTRANSFERASE,AST 34 U/L (15-37); BILIRUBIN TOTAL 0.4 mg/dL (0.2-1.0); BLOOD UREA NITROGEN,BUN 21 mg/dL (7-18); BUN/CREATININE RATIO 17.5 (No establ ref range); CALCIUM 8.3 mg/dL (8.5-10.1); CARBON DIOXIDE,CO2 33 mmol/L (21-32); CHLORIDE,CL 101 mmol/L (98-107); EST CRCL DRUG DOSING (CG) 52.37 mL/min; GLUCOSE RANDOM 155 mg/dL (70-99); MAGNESIUM 2.3 mg/dL (1.8-2.4); POTASSIUM,K 3.5 mmol/L (3.5-5.1); PROTEIN TOTAL,TP 7.3 g/dL (6.4-8.2); SODIUM,NA 142 mmol/L (136-145)
[2023-08-01 06:58] LABS: A/G RATIO 0.78; ESTIMATED GFR 63 mL/min (>=60)
[2023-08-01 07:02] LABS: C-REACTIVE PROTEIN < 0.50 ng/dL (<=0.50)
[2023-08-01 07:16] LABS: B-TYPE NATRIURETIC PEPTIDE,BNP 34 pg/ml (0-100)
[2023-08-01 08:07] LABS: BAND PERCENT MAN 3 %; EOSINOPHILS PERCENT MAN 1 % (1-3); LYMPHOCYTES PERCENT MAN 17 % (20-50); MONOCYTES PERCENT MAN 6 % (2-8); SEG NEUTROPHILS PERCENT MAN 73 % (42-75)
[2023-08-01] MEDS: Non-Formulary Medication 1 Each (Roflumilast [Roflumilast] 500 MCG Tablet) PO SCH (10:44)
[2023-08-01] MEDS: Budesonide 0.5 MG/2 ML Neb Susp NEB SCH (17:18)
[2023-08-01] MEDS: Patient's Own Medication 1 Each INH SCH (17:42)
[2023-08-01] MEDS: Cefuroxime 250 MG Tab PO SCH (20:28)
[2023-08-02] MEDS: Pantoprazole 40 MG Tab.CR PO SCH (05:58)
[2023-08-02 06:44] LABS: ALBUMIN 3.2 g/dL (3.4-5.0); ANION GAP 12.5 mEq/L (7-13); BLOOD UREA NITROGEN,BUN 24 mg/dL (7-18); BUN/CREATININE RATIO 20.5 (No establ ref range); CALCIUM 8.4 mg/dL (8.5-10.1); CARBON DIOXIDE,CO2 31 mmol/L (21-32); CHLORIDE,CL 102 mmol/L (98-107); CREATININE 1.17 mg/dL (0.70-1.30); EST CRCL DRUG DOSING (CG) 53.71 mL/min; GLUCOSE RANDOM 157 mg/dL (70-99); POTASSIUM,K 3.5 mmol/L (3.5-5.1); PROTEIN TOTAL,TP 7.1 g/dL (6.4-8.2); SODIUM,NA 142 mmol/L (136-145)
[2023-08-02 06:45] LABS: ALANINE AMINOTRANSFERASE,ALT 68 U/L (16-63); ALKALINE PHOSPHATASE 62 U/L (46-116); ASPARTATE AMNIOTRANSFERASE,AST 28 U/L (15-37); BILIRUBIN TOTAL 0.4 mg/dL (0.2-1.0); MAGNESIUM 2.5 mg/dL (1.8-2.4)
[2023-08-02 06:47] LABS: A/G RATIO 0.82; C-REACTIVE PROTEIN < 0.50 ng/dL (<=0.50); ESTIMATED GFR 65 mL/min (>=60)
[2023-08-02 06:53] LABS: HEMATOCRIT 39.4 % (40.0-54.0); HEMOGLOBIN 12.6 g/dL (14.0-18.0); MEAN CORPUSCULAR HEMOGLOBIN 30.1 pg (27.0-34.0); MEAN CORPUSCULAR VOLUME 94.3 fL (80-100); PLATELET COUNT,PLT 276 10^3/uL (150-450); RED BLOOD CELL COUNT 4.18 10^6/uL (4.6-6.2); WHITE BLOOD CELL COUNT,WBC 11.9 10^3/uL (5.0-10.0)
[2023-08-02 06:55] LABS: BASOPHILS PERCENT AUTO 0.1 % (0.0-1.0); EOSINOPHILS PERCENT AUTO 0.3 % (1.0-3.0); MONOCYTES PERCENT AUTO 9.7 % (2-8); NEUTROPHILS PERCENT AUTO 70.9 % (42.2-75.2)
[2023-08-02 07:29] LABS: BAND PERCENT MAN 1 %; LYMPHOCYTES PERCENT MAN 19 % (20-50); MONOCYTES PERCENT MAN 9 % (2-8); SEG NEUTROPHILS PERCENT MAN 71 % (42-75)
[2023-08-02 08:15] VITALS: BP 132/56; PULSE 97
[2023-08-02] MEDS: Dexamethasone 4 MG Tab PO SCH (09:19)
[2023-08-02] MEDS: Azithromycin 250 MG Tab PO SCH (09:21)
== END 2023-08-02 09:30 | disposition home or self-care (01) | DRG 280 ==
LOC: DL.ED 17:48 → DL.MS 21:22 → DL.ED 22:03
PROVIDERS: ADMIT Internal Medicine; ATTEND Emergency Medicine
DX: I21.4 Non-ST elevation (NSTEMI) myocardial infarction (principal); J18.9 Pneumonia, unspecified organism; J96.01 Acute respiratory failure with hypoxia; J44.1 Chronic obstructive pulmonary disease with (acute) exacerbation; J21.0 Acute bronchiolitis due to respiratory syncytial virus; I11.0 Hypertensive heart disease with heart failure; I13.0 Hypertensive heart and chronic kidney disease with heart failure and stage 1 through stage 4 chronic kidney disease, or unspecified chronic kidney disease; E87.20 Acidosis, unspecified; H91.90 Unspecified hearing loss, unspecified ear; E11.9 Type 2 diabetes mellitus without complications; I48.91 Unspecified atrial fibrillation; I25.10 Atherosclerotic heart disease of native coronary artery without angina pectoris; I50.9 Heart failure, unspecified; E78.00 Pure hypercholesterolemia, unspecified; G47.00 Insomnia, unspecified; E66.9 Obesity, unspecified; Z68.38 Body mass index [BMI] 38.0-38.9, adult; I16.0 Hypertensive urgency; E11.65 Type 2 diabetes mellitus with hyperglycemia; H54.62 Unqualified visual loss, left eye, normal vision right eye; E11.42 Type 2 diabetes mellitus with diabetic polyneuropathy; G47.33 Obstructive sleep apnea (adult) (pediatric); N18.30 Chronic kidney disease, stage 3 unspecified; E11.22 Type 2 diabetes mellitus with diabetic chronic kidney disease; E88.09 Other disorders of plasma-protein metabolism, not elsewhere classified; Z95.1 Presence of aortocoronary bypass graft; Z79.02 Long term (current) use of antithrombotics/antiplatelets; Z79.4 Long term (current) use of insulin; Z79.51 Long term (current) use of inhaled steroids; Z79.899 Other long term (current) drug therapy; Z79.84 Long term (current) use of oral hypoglycemic drugs; Z79.2 Long term (current) use of antibiotics; Z86.73 Personal history of transient ischemic attack (TIA), and cerebral infarction without residual deficits; Z68.29 Body mass index [BMI] 29.0-29.9, adult; Z86.16 Personal history of COVID-19; Z98.49 Cataract extraction status, unspecified eye; Z98.890 Other specified postprocedural states; Z87.891 Personal history of nicotine dependence
CPT/HCPCS: 0241U; 36415; 71045; 80053; 80061; 82550; 82947; 83036; 83605; 83735; 83880; 84484; 85025; 85379; 85730; 86140; 87040; 87070; 87205; 93005; 93010; 93306; 94640; 99285; 99239; A9270-GY; C9113; J0456; J1100; J1644; J1815-GY; J2543; J3490; J7030; J7040; J7050; J7620-GY; J8540

== ENCOUNTER 2023-11-08 11:13 | Inpatient (IN) | payer MEDICARE, OTHER ==
[2023-11-08] MEDS: Albuterol/Ipratropium 3.0-0.5 MG/3 ML Neb Soln NEB ONE ×2 (12:00→12:15)
[2023-11-08] MEDS: methylPREDNISolone Sodium Succinate 125 MG/2 ML SDV IVPUSH ONE (12:18)
[2023-11-08 12:28] LABS: BASOPHILS PERCENT AUTO 0.5 % (0.0-1.0); EOSINOPHILS PERCENT AUTO 1.6 % (1.0-3.0); HEMATOCRIT 42.2 % (40.0-54.0); HEMOGLOBIN 13.2 g/dL (14.0-18.0); LYMPHOCYTES PERCENT AUTO 13.3 % (20.5-50.1); MEAN CORPUSCULAR HEMOGLOBIN 29.7 pg (27.0-34.0); MEAN CORPUSCULAR HGB CONC 31.3 g/dL (33.0-35.0); MONOCYTES PERCENT AUTO 7.1 % (2-8); NEUTROPHILS PERCENT AUTO 77.5 % (42.2-75.2); PLATELET COUNT,PLT 298 10^3/uL (150-450); RED BLOOD CELL COUNT 4.44 10^6/uL (4.6-6.2); WHITE BLOOD CELL COUNT,WBC 12.2 10^3/uL (5.0-10.0)
[2023-11-08] MEDS: Azithromycin 500 MG in Sodium Chloride 0.9% 250 ML IV ONE (12:46)
[2023-11-08] MEDS: Sodium Chloride 0.9% 10 ML Syringe FLUSH PRN (12:46)
[2023-11-08] MEDS: Cefepime 2 GM Vial IVPUSH ONE (12:46)
[2023-11-08 12:48] LABS: ALBUMIN 3.2 g/dL (3.4-5.0); ANION GAP 13.6 mEq/L (7-13); BILIRUBIN TOTAL 0.5 mg/dL (0.2-1.0); BUN/CREATININE RATIO 14.8 (No establ ref range); CREATININE 1.28 mg/dL (0.70-1.30); EST CRCL DRUG DOSING (CG) 50.69 mL/min; POTASSIUM,K 4.6 mmol/L (3.5-5.1); PROTEIN TOTAL,TP 7.8 g/dL (6.4-8.2)
[2023-11-08 12:51] LABS: A/G RATIO 0.7
[2023-11-08 12:55] LABS: LACTIC ACID 2.1 mmol/L (0.4-2.0)
[2023-11-08] MEDS ORDERED: Acetaminophen 325 MG Tab PO PRN (14:43)
[2023-11-08] MEDS ORDERED: Sodium Chloride 0.9% 10 ML Syringe FLUSH PRN (14:43)
[2023-11-08] MEDS ORDERED: Docusate Sodium 100 MG Cap PO PRN (14:43)
[2023-11-08] MEDS ORDERED: Acetaminophen/HYDROcodone 325-10 MG Tab PO PRN (14:43)
[2023-11-08] MEDS ORDERED: Ondansetron 4 MG Tab.DIS PO PRN (14:43)
[2023-11-08] MEDS ORDERED: Glucagon,Human Recombinant 1 MG Vial IM PRN (14:51)
[2023-11-08] MEDS ORDERED: 50% Dextrose in Water 50 ML Syringe IVPUSH PRN (14:51)
[2023-11-08] MEDS: methylPREDNISolone Sodium Succinate 40 MG/1 ML SDV IVPUSH SCH ×2 (15:03→21:55)
[2023-11-08] MEDS: Azithromycin 500 MG in Sodium Chloride 0.9% 250 ML IV SCH (15:03)
[2023-11-08] MEDS: cefTRIAXone 1 GM Vial IVPUSH SCH (15:08)
[2023-11-08] MEDS: Arformoterol 15 MCG/2 ML Neb Soln INH SCH (16:35)
[2023-11-08] MEDS: Albuterol/Ipratropium 3.0-0.5 MG/3 ML Neb Soln NEB SCH (16:35)
[2023-11-08] MEDS: Budesonide 0.5 MG/2 ML Neb Susp INH SCH (16:36)
[2023-11-08] MEDS: metFORMIN 500 MG Tab PO SCH (17:23)
[2023-11-08] MEDS: Insulin Lispro 100 Units/ML 3 ML Vial SUBCUT SCH (17:23)
[2023-11-08] MEDS: Insulin Glarg,Human.Rec.Analog 100 Unit/ML 10 ML Vial SUBCUT SCH (21:57)
[2023-11-09 06:44] LABS: BASOPHILS PERCENT AUTO 0.1 % (0.0-1.0); HEMATOCRIT 37.2 % (40.0-54.0); HEMOGLOBIN 11.7 g/dL (14.0-18.0); LYMPHOCYTES PERCENT AUTO 7.9 % (20.5-50.1); MEAN CORPUSCULAR HEMOGLOBIN 29.9 pg (27.0-34.0); MEAN CORPUSCULAR HGB CONC 31.5 g/dL (33.0-35.0); MEAN CORPUSCULAR VOLUME 95.1 fL (80-100); MONOCYTES PERCENT AUTO 1.9 % (2-8); NEUTROPHILS PERCENT AUTO 90.1 % (42.2-75.2); PLATELET COUNT,PLT 268 10^3/uL (150-450); RED BLOOD CELL COUNT 3.91 10^6/uL (4.6-6.2); WHITE BLOOD CELL COUNT,WBC 14.1 10^3/uL (5.0-10.0)
[2023-11-09 06:52] LABS: ANION GAP 13.5 mEq/L (7-13); CALCIUM 8.7 mg/dL (8.5-10.1); CREATININE 1.23 mg/dL (0.70-1.30); EST CRCL DRUG DOSING (CG) 51.92 mL/min; POTASSIUM,K 4.5 mmol/L (3.5-5.1)
[2023-11-09] MEDS: Insulin Glarg,Human.Rec.Analog 100 Unit/ML 10 ML Vial SUBCUT SCH (08:09)
[2023-11-09] MEDS: Insulin Lispro 100 Units/ML 3 ML Vial SUBCUT SCH (08:13)
[2023-11-09] MEDS: Enoxaparin 40 MG/0.4 ML Syringe SUBCUT SCH (08:17)
[2023-11-09] MEDS: Clopidogrel 75 MG Tab PO SCH (08:20)
[2023-11-09] MEDS: Bumetanide 1 MG Tab PO SCH (08:20)
[2023-11-09] MEDS: Simvastatin 10 MG Tab PO SCH (08:20)
[2023-11-09] MEDS: Loratadine 10 MG Tab PO SCH (08:20)
[2023-11-09] MEDS ORDERED: Non-Formulary Medication 1 Each (Roflumilast [Roflumilast] 500 MCG Tablet) PO SCH (09:00)
[2023-11-09] MEDS: Azithromycin 500 MG in Sodium Chloride 0.9% 250 ML IV SCH (12:31)
[2023-11-09] MEDS: methylPREDNISolone Sodium Succinate 40 MG/1 ML SDV IVPUSH SCH (20:41)
[2023-11-10] MEDS ORDERED: 50% Dextrose in Water 50 ML Syringe IVPUSH PRN (12:46)
[2023-11-10] MEDS ORDERED: Glucagon,Human Recombinant 1 MG Vial IM PRN (12:46)
[2023-11-10] MEDS: Insulin Lispro 100 Units/ML 3 ML Vial SUBCUT ONE (13:08)
[2023-11-10] MEDS: methylPREDNISolone Sodium Succinate 40 MG/1 ML SDV IVPUSH SCH (20:51)
[2023-11-11 07:34] VITALS: BP 139/62; PULSE 90
== END 2023-11-11 10:47 | disposition home or self-care (01) | DRG 193 ==
LOC: DL.ED 11:13 → DL.MS 13:50
PROVIDERS: ADMIT Internal Medicine; ATTEND Internal Medicine
DX: J18.9 Pneumonia, unspecified organism (principal); J96.21 Acute and chronic respiratory failure with hypoxia; I13.0 Hypertensive heart and chronic kidney disease with heart failure and stage 1 through stage 4 chronic kidney disease, or unspecified chronic kidney disease; J44.0 Chronic obstructive pulmonary disease with (acute) lower respiratory infection; J44.1 Chronic obstructive pulmonary disease with (acute) exacerbation; Z66 Do not resuscitate; I50.9 Heart failure, unspecified; E11.40 Type 2 diabetes mellitus with diabetic neuropathy, unspecified; H54.62 Unqualified visual loss, left eye, normal vision right eye; E78.5 Hyperlipidemia, unspecified; I25.10 Atherosclerotic heart disease of native coronary artery without angina pectoris; E11.42 Type 2 diabetes mellitus with diabetic polyneuropathy; G47.33 Obstructive sleep apnea (adult) (pediatric); I48.91 Unspecified atrial fibrillation; N18.30 Chronic kidney disease, stage 3 unspecified; E11.22 Type 2 diabetes mellitus with diabetic chronic kidney disease; E66.01 Morbid (severe) obesity due to excess calories; H91.90 Unspecified hearing loss, unspecified ear; F32.A Depression, unspecified; Z98.49 Cataract extraction status, unspecified eye; Z87.891 Personal history of nicotine dependence; Z98.890 Other specified postprocedural states; Z95.1 Presence of aortocoronary bypass graft; Z86.73 Personal history of transient ischemic attack (TIA), and cerebral infarction without residual deficits; Z86.16 Personal history of COVID-19; Z68.35 Body mass index [BMI] 35.0-35.9, adult; Z79.02 Long term (current) use of antithrombotics/antiplatelets; Z79.899 Other long term (current) drug therapy; Z79.84 Long term (current) use of oral hypoglycemic drugs; Z79.4 Long term (current) use of insulin; Z79.51 Long term (current) use of inhaled steroids; Z95.5 Presence of coronary angioplasty implant and graft
CPT/HCPCS: 36415; 71046; 80053; 83605; 83880; 85025; 87040; 87804 ×2; 94640; 96365; 96375; 99285; J0456; J0692; J2919; J7050; U0002; 80048; 82947; 94760; A9270-GY; J0696; J1650; J1815-GY; J3490; J7620-GY

== ENCOUNTER 2024-01-07 10:49 | Emergency (ER) | payer MEDICARE, OTHER ==
[2024-01-07 11:18] VITALS: BP 123/61; PULSE 86
[2024-01-07] MEDS: Budesonide 0.5 MG/2 ML Neb Susp NEB ONE (11:30)
== END 2024-01-07 11:53 | disposition home or self-care (01) ==
LOC: DL.ED 10:49
DX: J44.9 Chronic obstructive pulmonary disease, unspecified (principal); I11.0 Hypertensive heart disease with heart failure; I50.9 Heart failure, unspecified; I25.10 Atherosclerotic heart disease of native coronary artery without angina pectoris; I25.2 Old myocardial infarction; I48.91 Unspecified atrial fibrillation; E78.00 Pure hypercholesterolemia, unspecified; E11.9 Type 2 diabetes mellitus without complications; E66.9 Obesity, unspecified; Z68.36 Body mass index [BMI] 36.0-36.9, adult; Z95.5 Presence of coronary angioplasty implant and graft; Z79.84 Long term (current) use of oral hypoglycemic drugs; Z79.4 Long term (current) use of insulin; Z79.899 Other long term (current) drug therapy
CPT/HCPCS: 99284; J3490

== ENCOUNTER 2024-06-05 17:59 | Emergency (ER) | payer MEDICARE, OTHER ==
[2024-06-05] MEDS ORDERED: Sodium Chloride 0.9% 10 ML Syringe FLUSH PRN (18:12)
[2024-06-05] MEDS ORDERED: cefTRIAXone 2 GM Vial IV ONE (18:12)
[2024-06-05 18:56] LABS: BASOPHILS PERCENT AUTO 0.4 % (0.0-1.0); EOSINOPHILS PERCENT AUTO 0.5 % (1.0-3.0); HEMATOCRIT 40.6 % (40.0-54.0); HEMOGLOBIN 12.8 g/dL (14.0-18.0); LYMPHOCYTES PERCENT AUTO 7.4 % (20.5-50.1); MEAN CORPUSCULAR HEMOGLOBIN 29.2 pg (27.0-34.0); MEAN CORPUSCULAR HGB CONC 31.5 g/dL (33.0-35.0); MEAN CORPUSCULAR VOLUME 92.7 fL (80-100); MONOCYTES PERCENT AUTO 5.1 % (2-8); NEUTROPHILS PERCENT AUTO 86.6 % (42.2-75.2); PLATELET COUNT,PLT 203 10^3/uL (150-450); RED BLOOD CELL COUNT 4.38 10^6/uL (4.6-6.2); WHITE BLOOD CELL COUNT,WBC 8.2 10^3/uL (5.0-10.0)
[2024-06-05] MEDS: Albuterol/Ipratropium 3.0-0.5 MG/3 ML Neb Soln NEB ONE (19:04)
[2024-06-05 19:08] LABS: APPEARANCE,URINE CLEAR (CLEAR); BILIRUBIN,URINE NEGATIVE (NEGATIVE); COLOR,URINE YELLOW (YELLOW); GLUCOSE,URINE >=1000 (NEGATIVE); KETONES,URINE TRACE (NEGATIVE); LEUKOCYTE ESTERASE,URINE TRACE (NEGATIVE); NITRITE,URINE NEGATIVE (NEGATIVE); OCCULT BLOOD,URINE MODERATE (NEGATIVE); PH,URINE 5.5 (5.0-9.0); PROTEIN,URINE NEGATIVE (NEGATIVE); UROBILINOGEN,URINE 0.2 mg/dL (0.2-1.0)
[2024-06-05 19:20] LABS: BACTERIA,URINE FEW /HPF (0-FEW/HPF); EPITHELIAL CELLS,URINE FEW /HPF (NOT SEEN); MUCUS,URINE FEW /LPF (NOT SEEN)
[2024-06-05 19:23] LABS: LACTIC ACID 1.9 mmol/L (0.4-2.0)
[2024-06-05 19:24] LABS: B-TYPE NATRIURETIC PEPTIDE,BNP 58 pg/ml (0-100)
[2024-06-05 19:26] LABS: A/G RATIO 0.7; ALANINE AMINOTRANSFERASE,ALT 36 U/L (16-63); ALBUMIN 3.4 g/dL (3.4-5.0); ALKALINE PHOSPHATASE 147 U/L (46-116); ANION GAP 15.1 mEq/L (7-13); ASPARTATE AMNIOTRANSFERASE,AST 24 U/L (15-37); BILIRUBIN TOTAL 0.5 mg/dL (0.2-1.0); BLOOD UREA NITROGEN,BUN 19 mg/dL (7-18); BUN/CREATININE RATIO 15.7 (No establ ref range); CALCIUM 8.9 mg/dL (8.5-10.1); CARBON DIOXIDE,CO2 29 mmol/L (21-32); CHLORIDE,CL 95 mmol/L (98-107); CREATININE 1.21 mg/dL (0.70-1.30); POTASSIUM,K 5.1 mmol/L (3.5-5.1); PROTEIN TOTAL,TP 8.1 g/dL (6.4-8.2); SODIUM,NA 134 mmol/L (136-145)
[2024-06-05 19:30] LABS: ESTIMATED GFR 62 mL/min (>=60); GLUCOSE RANDOM 442 mg/dL (70-99)
[2024-06-05] MEDS: Insulin Regular, Human 100 Units/ML 3 ML Vial IV ONE (20:05)
[2024-06-05] MEDS: Albuterol 0.083% 2.5 MG/3 ML Neb Soln NEB ONE (20:17)
[2024-06-05 21:18] VITALS: BP 119/75; PULSE 99
== END 2024-06-05 21:08 | disposition home or self-care (01) ==
LOC: DL.ED 17:59
DX: J44.1 Chronic obstructive pulmonary disease with (acute) exacerbation (principal); I11.0 Hypertensive heart disease with heart failure; I50.9 Heart failure, unspecified; I25.10 Atherosclerotic heart disease of native coronary artery without angina pectoris; E78.00 Pure hypercholesterolemia, unspecified; E11.9 Type 2 diabetes mellitus without complications; E66.9 Obesity, unspecified; Z86.73 Personal history of transient ischemic attack (TIA), and cerebral infarction without residual deficits; Z79.4 Long term (current) use of insulin; Z79.84 Long term (current) use of oral hypoglycemic drugs; Z79.51 Long term (current) use of inhaled steroids; Z79.52 Long term (current) use of systemic steroids; Z79.899 Other long term (current) drug therapy
CPT/HCPCS: 36415; 71046; 80053; 81001; 82947; 83605; 83880; 85025; 87040; 99284; 99285; J7613-GY; J7620-GY

== ENCOUNTER 2024-06-06 16:41 | Inpatient (IN) | payer MEDICARE, OTHER ==
[2024-06-06 17:10] LABS: BASOPHILS PERCENT AUTO 0.1 % (0.0-1.0); EOSINOPHILS PERCENT AUTO 0.1 % (1.0-3.0); HEMATOCRIT 38.1 % (40.0-54.0); HEMOGLOBIN 11.9 g/dL (14.0-18.0); LYMPHOCYTES PERCENT AUTO 4.3 % (20.5-50.1); MEAN CORPUSCULAR HEMOGLOBIN 28.9 pg (27.0-34.0); MEAN CORPUSCULAR HGB CONC 31.2 g/dL (33.0-35.0); MEAN CORPUSCULAR VOLUME 92.5 fL (80-100); MONOCYTES PERCENT AUTO 10.4 % (2-8); NEUTROPHILS PERCENT AUTO 85.1 % (42.2-75.2); PLATELET COUNT,PLT 219 10^3/uL (150-450); RED BLOOD CELL COUNT 4.12 10^6/uL (4.6-6.2); WHITE BLOOD CELL COUNT,WBC 13.9 10^3/uL (5.0-10.0)
[2024-06-06] MEDS: Albuterol/Ipratropium 3.0-0.5 MG/3 ML Neb Soln NEB ONE (17:15)
[2024-06-06] MEDS: Magnesium Sulfate/D5W 1 GM/100 ML BAG IV ONE (17:15)
[2024-06-06] MEDS: methylPREDNISolone Sodium Succinate 125 MG/2 ML SDV IVPUSH ONE (17:15)
[2024-06-06 17:33] LABS: ANION GAP 13.9 mEq/L (7-13); BLOOD UREA NITROGEN,BUN 20 mg/dL (7-18); CALCIUM 8.9 mg/dL (8.5-10.1); CARBON DIOXIDE,CO2 30 mmol/L (21-32); CHLORIDE,CL 96 mmol/L (98-107); CREATININE 1.28 mg/dL (0.70-1.30); GLUCOSE RANDOM 394 mg/dL (70-99); POTASSIUM,K 4.9 mmol/L (3.5-5.1); SODIUM,NA 135 mmol/L (136-145)
[2024-06-06 17:35] LABS: ESTIMATED GFR 58 mL/min (>=60)
[2024-06-06 17:56] LABS: APPEARANCE,URINE CLEAR (CLEAR); BILIRUBIN,URINE NEGATIVE (NEGATIVE); COLOR,URINE YELLOW (YELLOW); GLUCOSE,URINE 500 (NEGATIVE); KETONES,URINE NEGATIVE (NEGATIVE); LEUKOCYTE ESTERASE,URINE SMALL (NEGATIVE); NITRITE,URINE NEGATIVE (NEGATIVE); OCCULT BLOOD,URINE SMALL (NEGATIVE); PH,URINE 5.5 (5.0-9.0); PROTEIN,URINE NEGATIVE (NEGATIVE); UROBILINOGEN,URINE 0.2 mg/dL (0.2-1.0)
[2024-06-06 18:09] LABS: AMORPHOUS SEDIMENT,URINE FEW /HPF (NOT SEEN); BACTERIA,URINE FEW /HPF (0-FEW/HPF); EPITHELIAL CELLS,URINE FEW /HPF (NOT SEEN); MUCUS,URINE MODERATE /LPF (NOT SEEN); RBC,URINE 0-5 /HPF (0-5); WBC,URINE 20-30 /HPF (0-5/HPF)
[2024-06-06] MEDS ORDERED: Sodium Chloride 0.9% 10 ML Syringe FLUSH PRN (20:42)
[2024-06-06] MEDS ORDERED: Acetaminophen 325 MG Tab PO PRN (20:42)
[2024-06-06] MEDS ORDERED: Melatonin 3 MG Tab PO PRN (20:42)
[2024-06-06] MEDS ORDERED: Docusate Sodium 100 MG Cap PO PRN (20:42)
[2024-06-06] MEDS ORDERED: Ketorolac 30 MG/ML SDV IVPUSH PRN (20:42)
[2024-06-06] MEDS ORDERED: Ondansetron 4 MG/2 ML SDV IVPUSH PRN (20:42)
[2024-06-06] MEDS ORDERED: Polyethylene Glycol 3350 Powder 17 GM Packet PO PRN (20:42)
[2024-06-06] MEDS ORDERED: guaiFENesin 600 MG Tab.ER PO PRN (20:49)
[2024-06-06] MEDS ORDERED: methylPREDNISolone Sodium Succinate 125 MG/2 ML SDV IVPUSH SCH (21:00)
[2024-06-06] MEDS ORDERED: Glucagon,Human Recombinant 1 MG Vial IM PRN (21:03)
[2024-06-06] MEDS ORDERED: 50% Dextrose in Water 50 ML Syringe IVPUSH PRN (21:03)
[2024-06-06] MEDS: Azithromycin 500 MG in Sodium Chloride 0.9% 250 ML IV SCH (21:43)
[2024-06-06] MEDS: Sodium Chloride 0.9% 10 ML Syringe FLUSH SCH (21:43)
[2024-06-06] MEDS: cefTRIAXone 1 GM Vial IVPUSH SCH (21:43)
[2024-06-06] MEDS: Albuterol/Ipratropium 3.0-0.5 MG/3 ML Neb Soln NEB SCH (21:44)
[2024-06-07] MEDS: Formoterol/Mometasone 200-5 MCG 8.8 GM Inhaler INH SCH (05:36)
[2024-06-07] MEDS: methylPREDNISolone Sodium Succinate 125 MG/2 ML SDV IVPUSH SCH (05:37)
[2024-06-07] MEDS: Pantoprazole 40 MG Tab.CR PO SCH (05:38)
[2024-06-07 06:45] LABS: BASOPHILS PERCENT AUTO 0.1 % (0.0-1.0); HEMATOCRIT 39.4 % (40.0-54.0); HEMOGLOBIN 12.2 g/dL (14.0-18.0); LYMPHOCYTES PERCENT AUTO 8.2 % (20.5-50.1); MEAN CORPUSCULAR VOLUME 93.6 fL (80-100); MONOCYTES PERCENT AUTO 4.6 % (2-8); NEUTROPHILS PERCENT AUTO 87.1 % (42.2-75.2); PLATELET COUNT,PLT 232 10^3/uL (150-450); RED BLOOD CELL COUNT 4.21 10^6/uL (4.6-6.2); WHITE BLOOD CELL COUNT,WBC 13.2 10^3/uL (5.0-10.0)
[2024-06-07 07:03] LABS: INR 0.9 (0.9-1.2); PROTHROMBIN TIME 9.8 SEC (9.0-12.0); PTT,PARTIAL THROMBOPLSTIN TIME 26.3 SEC (22.0-34.0)
[2024-06-07 07:12] LABS: HEMOGLOBIN A1C 8.2 % (<5.7)
[2024-06-07 07:21] LABS: A/G RATIO 0.7; ALBUMIN 3.4 g/dL (3.4-5.0); ANION GAP 13.8 mEq/L (7-13); BILIRUBIN TOTAL 0.5 mg/dL (0.2-1.0); BUN/CREATININE RATIO 18.9 (No establ ref range); CREATININE 1.43 mg/dL (0.70-1.30); EST CRCL DRUG DOSING (CG) 44.67 mL/min; MAGNESIUM 2.5 mg/dL (1.8-2.4); POTASSIUM,K 5.8 mmol/L (3.5-5.1); PROTEIN TOTAL,TP 8.2 g/dL (6.4-8.2)
[2024-06-07] MEDS: Insulin Lispro 100 Units/ML 3 ML Vial SUBCUT ONE ×2 (07:54→21:28)
[2024-06-07] MEDS: Simvastatin 10 MG Tab PO SCH (08:00)
[2024-06-07] MEDS: Clopidogrel 75 MG Tab PO SCH (08:00)
[2024-06-07] MEDS: Bumetanide 1 MG Tab PO SCH (08:00)
[2024-06-07] MEDS: Enoxaparin 40 MG/0.4 ML Syringe SUBCUT SCH (08:00)
[2024-06-07 08:18] LABS: O2 DELIVERY DEVICE NASAL CANNULA
[2024-06-07 08:24] LABS: BICARBONATE,VENOUS 30 mmol/l (19-25); O2 SATURATION VENOUS 92.8 % (60-80); PCO2 VENOUS 50 mmHg (41-51); PH,VENOUS 7.39 (7.31-7.41); PO2 VENOUS 71 mmHg (35-42)
[2024-06-07 08:25] LABS: BASE EXCESS VENOUS 4.2 mmol/l ((-2)-(+3))
[2024-06-07 08:43] LABS: KETONES,BLOOD NEGATIVE
[2024-06-07] MEDS ORDERED: ROFLUMILAST 500 MCG PO SCH (09:00)
[2024-06-07 09:05] LABS: ANION GAP 14.3 mEq/L (7-13); BLOOD UREA NITROGEN,BUN 28 mg/dL (7-18); CALCIUM 8.7 mg/dL (8.5-10.1); CARBON DIOXIDE,CO2 30 mmol/L (21-32); CHLORIDE,CL 94 mmol/L (98-107); CREATININE 1.33 mg/dL (0.70-1.30); EST CRCL DRUG DOSING (CG) 48.03 mL/min; POTASSIUM,K 5.3 mmol/L (3.5-5.1); SODIUM,NA 133 mmol/L (136-145)
[2024-06-07 09:16] LABS: ESTIMATED GFR 55 mL/min (>=60); GLUCOSE RANDOM 468 mg/dL (70-99)
[2024-06-07] MEDS: Insulin Lispro 100 Units/ML 3 ML Vial SUBCUT SCH (10:12)
[2024-06-07] MEDS: Insulin Glarg,Human.Rec.Analog 100 Unit/ML 10 ML Vial SUBCUT SCH ×2 (10:16→21:26)
[2024-06-07 10:17] LABS: CORONAVIRUS COVID-19 NAA NEGATIVE (NEGATIVE); INFLUENZA A NAA NEGATIVE (NEGATIVE); INFLUENZA B NAA NEGATIVE (NEGATIVE)
[2024-06-07 10:36] LABS: ANION GAP 13.7 mEq/L (7-13); CALCIUM 8.8 mg/dL (8.5-10.1); CREATININE 1.49 mg/dL (0.70-1.30); EST CRCL DRUG DOSING (CG) 42.87 mL/min; POTASSIUM,K 4.7 mmol/L (3.5-5.1)
[2024-06-07 12:36] LABS: ANION GAP 12.7 mEq/L (7-13); CALCIUM 8.7 mg/dL (8.5-10.1); CREATININE 1.36 mg/dL (0.70-1.30); EST CRCL DRUG DOSING (CG) 46.97 mL/min; POTASSIUM,K 4.7 mmol/L (3.5-5.1)
[2024-06-07 14:34] LABS: ANION GAP 12.7 mEq/L (7-13); CALCIUM 8.5 mg/dL (8.5-10.1); CREATININE 1.35 mg/dL (0.70-1.30); EST CRCL DRUG DOSING (CG) 47.31 mL/min; POTASSIUM,K 4.7 mmol/L (3.5-5.1)
[2024-06-07 17:34] LABS: ANION GAP 12.8 mEq/L (7-13); CALCIUM 8.6 mg/dL (8.5-10.1); CREATININE 1.3 mg/dL (0.70-1.30); EST CRCL DRUG DOSING (CG) 49.13 mL/min; POTASSIUM,K 4.8 mmol/L (3.5-5.1)
[2024-06-07] MEDS: Sodium Chloride 0.9% 1,000 ML IV SCH (18:23)
[2024-06-07] MEDS ORDERED: Insulin Glarg,Human.Rec.Analog 100 Unit/ML 10 ML Vial SUBCUT SCH ×2 (21:00)
[2024-06-08] MEDS: Insulin Glarg,Human.Rec.Analog 100 Unit/ML 10 ML Vial SUBCUT SCH (09:55)
[2024-06-08 11:34] VITALS: BP 125/76; PULSE 88
== END 2024-06-08 12:30 | disposition home or self-care (01) | DRG 191 ==
LOC: DL.ED 16:41 → DL.MS 18:08
PROVIDERS: ADMIT Internal Medicine; ATTEND Student in an Organized Health Care Education/Training Program
DX: J44.1 Chronic obstructive pulmonary disease with (acute) exacerbation (principal); E87.1 Hypo-osmolality and hyponatremia; I30.1 Infective pericarditis; I50.32 Chronic diastolic (congestive) heart failure; J45.901 Unspecified asthma with (acute) exacerbation; E11.22 Type 2 diabetes mellitus with diabetic chronic kidney disease; I11.0 Hypertensive heart disease with heart failure; H54.7 Unspecified visual loss; H91.90 Unspecified hearing loss, unspecified ear; J44.89 Other specified chronic obstructive pulmonary disease; F32.A Depression, unspecified; N18.9 Chronic kidney disease, unspecified; G47.33 Obstructive sleep apnea (adult) (pediatric); Z66 Do not resuscitate; D72.829 Elevated white blood cell count, unspecified; I50.9 Heart failure, unspecified; I25.10 Atherosclerotic heart disease of native coronary artery without angina pectoris; E78.00 Pure hypercholesterolemia, unspecified; D63.1 Anemia in chronic kidney disease; E11.65 Type 2 diabetes mellitus with hyperglycemia; E66.812 Obesity, class 2; F15.90 Other stimulant use, unspecified, uncomplicated; E87.5 Hyperkalemia; Z99.81 Dependence on supplemental oxygen; Z95.1 Presence of aortocoronary bypass graft; Z87.891 Personal history of nicotine dependence; Z68.35 Body mass index [BMI] 35.0-35.9, adult; I25.2 Old myocardial infarction; Z79.51 Long term (current) use of inhaled steroids; Z79.2 Long term (current) use of antibiotics; E11.9 Type 2 diabetes mellitus without complications; Z86.73 Personal history of transient ischemic attack (TIA), and cerebral infarction without residual deficits; Z98.890 Other specified postprocedural states; E66.9 Obesity, unspecified; Z79.899 Other long term (current) drug therapy; Z79.4 Long term (current) use of insulin; Z79.84 Long term (current) use of oral hypoglycemic drugs; Z68.36 Body mass index [BMI] 36.0-36.9, adult
CPT/HCPCS: 0240U; 36415; 71046; 80048; 80053; 81001; 82009; 82803; 82947; 83036; 83735; 83880; 84145; 85025; 85610; 85730; 87086; 93005; 93010; 94640; 96374; 96375; 97161; 97165; 99284; 99285; 99223; 99232; A9270-GY; J0456; J0696; J1650; J1815-GY; J2919; J3475; J7030; J7050; J7620-GY

== ENCOUNTER 2024-08-01 19:55 | Emergency (ER) | payer MEDICARE, OTHER ==
[2024-08-01 20:17] VITALS: BP 126/93; PULSE 98
[2024-08-01] MEDS ORDERED: 50% Dextrose in Water 50 ML Syringe IVPUSH PRN (20:23)
[2024-08-01] MEDS ORDERED: Glucagon,Human Recombinant 1 MG Vial IM PRN (20:23)
[2024-08-01 20:40] LABS: BASOPHILS PERCENT AUTO 0.3 % (0.0-1.0); HEMATOCRIT 39.7 % (40.0-54.0); HEMOGLOBIN 12.4 g/dL (14.0-18.0); LYMPHOCYTES PERCENT AUTO 9.3 % (20.5-50.1); MEAN CORPUSCULAR HGB CONC 31.2 g/dL (33.0-35.0); MONOCYTES PERCENT AUTO 8.5 % (2-8); NEUTROPHILS PERCENT AUTO 81.9 % (42.2-75.2); PLATELET COUNT,PLT 250 10^3/uL (150-450); RED BLOOD CELL COUNT 4.27 10^6/uL (4.6-6.2); WHITE BLOOD CELL COUNT,WBC 12.3 10^3/uL (5.0-10.0)
[2024-08-01] MEDS: Sodium Chloride 0.9% 1,000 ML IV ONE (20:40)
[2024-08-01] MEDS: Insulin Regular, Human 100 Units/ML 10 ML Vial IV ONE (20:40)
[2024-08-01 20:58] LABS: A/G RATIO 0.8; ALANINE AMINOTRANSFERASE,ALT 20 U/L (16-63); ALBUMIN 3.5 g/dL (3.4-5.0); ALKALINE PHOSPHATASE 123 U/L (46-116); ANION GAP 14.2 mEq/L (7-13); ASPARTATE AMNIOTRANSFERASE,AST 10 U/L (15-37); BILIRUBIN TOTAL 0.4 mg/dL (0.2-1.0); BLOOD UREA NITROGEN,BUN 30 mg/dL (7-18); BUN/CREATININE RATIO 17.9 (No establ ref range); CARBON DIOXIDE,CO2 26 mmol/L (21-32); CHLORIDE,CL 97 mmol/L (98-107); CREATININE 1.68 mg/dL (0.70-1.30); LIPASE 18 U/L (16-77); MAGNESIUM 2.1 mg/dL (1.8-2.4); POTASSIUM,K 4.2 mmol/L (3.5-5.1); PROTEIN TOTAL,TP 7.8 g/dL (6.4-8.2); SODIUM,NA 133 mmol/L (136-145)
[2024-08-01 21:02] LABS: ESTIMATED GFR 42 mL/min (>=60); ETHANOL BLOOD MEDICAL < 3 mg/dL (0); GLUCOSE RANDOM 446 mg/dL (70-99)
== END 2024-08-01 22:04 | disposition home or self-care (01) ==
LOC: DL.ED 19:55
DX: E11.65 Type 2 diabetes mellitus with hyperglycemia (principal); I11.0 Hypertensive heart disease with heart failure; I50.9 Heart failure, unspecified; I48.91 Unspecified atrial fibrillation; I25.10 Atherosclerotic heart disease of native coronary artery without angina pectoris; E66.9 Obesity, unspecified; J44.89 Other specified chronic obstructive pulmonary disease; Z79.899 Other long term (current) drug therapy; Z79.84 Long term (current) use of oral hypoglycemic drugs; Z79.4 Long term (current) use of insulin; Z79.02 Long term (current) use of antithrombotics/antiplatelets
CPT/HCPCS: 36415; 80053; 80307; 82947; 83690; 83735; 85025; 96360; 99283; 99284; A9270; J7030

== ENCOUNTER 2024-09-23 09:42 | Emergency (ER) | payer MEDICARE, OTHER ==
[2024-09-23 10:03] VITALS: BP 118/51; PULSE 100
[2024-09-23] MEDS: Albuterol/Ipratropium 3.0-0.5 MG/3 ML Neb Soln NEB ONE (11:10)
[2024-09-23] MEDS: Take Home: Benzonatate 100 MG, 6 Cap Pack PO ONE (11:50)
== END 2024-09-23 12:04 | disposition home or self-care (01) ==
LOC: DL.ED 09:42
DX: J44.1 Chronic obstructive pulmonary disease with (acute) exacerbation (principal); I11.0 Hypertensive heart disease with heart failure; I50.9 Heart failure, unspecified; E66.9 Obesity, unspecified; I25.10 Atherosclerotic heart disease of native coronary artery without angina pectoris; J45.909 Unspecified asthma, uncomplicated; Z79.899 Other long term (current) drug therapy; Z79.4 Long term (current) use of insulin; Z79.84 Long term (current) use of oral hypoglycemic drugs; Z86.16 Personal history of COVID-19
CPT/HCPCS: 71046; 94640; 99283; 99284; A9270

== ENCOUNTER 2024-10-15 18:37 | Emergency (ER) | payer MEDICARE, OTHER ==
[2024-10-15] MEDS ORDERED: Magnesium Sulfate 2 GM/50 mL 2 GM in Premix Bag 1 BAG IV ONE (18:44)
[2024-10-15] MEDS ORDERED: Sodium Chloride 0.9% 10 ML Syringe FLUSH PRN (18:44)
[2024-10-15] MEDS: Albuterol/Ipratropium 3.0-0.5 MG/3 ML Neb Soln NEB ONE (18:54)
[2024-10-15] MEDS: Dexamethasone 4 MG/ML SDV IVPUSH ONE (18:54)
[2024-10-15 18:59] VITALS: BP 149/64; PULSE 91
== END 2024-10-15 19:23 | disposition home or self-care (01) ==
LOC: DL.ED 18:37
DX: J44.1 Chronic obstructive pulmonary disease with (acute) exacerbation (principal); I11.0 Hypertensive heart disease with heart failure; I50.9 Heart failure, unspecified; I25.10 Atherosclerotic heart disease of native coronary artery without angina pectoris; E78.00 Pure hypercholesterolemia, unspecified; E11.9 Type 2 diabetes mellitus without complications; J44.89 Other specified chronic obstructive pulmonary disease; E66.9 Obesity, unspecified; Z68.36 Body mass index [BMI] 36.0-36.9, adult; Z86.16 Personal history of COVID-19; Z79.899 Other long term (current) drug therapy; Z79.4 Long term (current) use of insulin
CPT/HCPCS: 96374; 99284-25; A9270-GY; J1100

== ENCOUNTER 2024-10-20 07:28 | Emergency (ER) | payer MEDICARE, OTHER ==
[2024-10-20] MEDS: Albuterol/Ipratropium 3.0-0.5 MG/3 ML Neb Soln NEB ONE (07:32)
[2024-10-20] MEDS: methylPREDNISolone Sodium Succinate 125 MG/2 ML SDV IVPUSH ONE (07:48)
[2024-10-20 07:52] LABS: BASOPHILS PERCENT AUTO 0.3 % (0.0-1.0); EOSINOPHILS PERCENT AUTO 0.7 % (1.0-3.0); HEMATOCRIT 39.4 % (40.0-54.0); HEMOGLOBIN 12.6 g/dL (14.0-18.0); LYMPHOCYTES PERCENT AUTO 12.8 % (20.5-50.1); MEAN CORPUSCULAR HEMOGLOBIN 29.8 pg (27.0-34.0); MEAN CORPUSCULAR VOLUME 93.1 fL (80-100); MONOCYTES PERCENT AUTO 9.2 % (2-8); PLATELET COUNT,PLT 245 10^3/uL (150-450); RED BLOOD CELL COUNT 4.23 10^6/uL (4.6-6.2)
[2024-10-20] MEDS: Albuterol/Ipratropium 3.0-0.5 MG/3 ML Neb Soln ONE (07:52)
[2024-10-20] MEDS: Albuterol 0.083% 2.5 MG/3 ML Neb Soln NEB ONE (07:54)
[2024-10-20 08:14] LABS: ALBUMIN 3.1 g/dL (3.4-5.0); ANION GAP 14.8 mEq/L (7-13); BILIRUBIN DIRECT 0.1 mg/dL (0.0-0.2); BILIRUBIN INDIRECT 0.3; BILIRUBIN TOTAL 0.4 mg/dL (0.2-1.0); CALCIUM 8.6 mg/dL (8.5-10.1); CREATININE 1.36 mg/dL (0.70-1.30); EST CRCL DRUG DOSING (CG) 46.97 mL/min; POTASSIUM,K 3.8 mmol/L (3.5-5.1)
[2024-10-20 08:17] LABS: A/G RATIO 0.79
[2024-10-20] MEDS: Heparin Sodium 5,000 Units/ML Vial IVPUSH ONE (09:22)
[2024-10-20] MEDS: Heparin Sodium/0.45% NaCl 25,000 UNITS/500 ML BAG IV SCH (09:23)
[2024-10-20] MEDS: Aspirin 325 MG Tab PO ONE (09:27)
[2024-10-20 13:17] VITALS: BP 155/64; PULSE 87
== END 2024-10-20 11:41 ==
LOC: DL.ED 07:28
DX: J42 Unspecified chronic bronchitis (principal); I21.4 Non-ST elevation (NSTEMI) myocardial infarction; I11.0 Hypertensive heart disease with heart failure; I50.9 Heart failure, unspecified; I25.10 Atherosclerotic heart disease of native coronary artery without angina pectoris; E78.00 Pure hypercholesterolemia, unspecified; E11.9 Type 2 diabetes mellitus without complications; E66.9 Obesity, unspecified; Z86.16 Personal history of COVID-19; Z79.899 Other long term (current) drug therapy; Z79.4 Long term (current) use of insulin
CPT/HCPCS: 36415; 71045; 80048; 80076; 83880; 84484; 85025; 85730; 87040; 93005; 93010; 96365; 96375; 99285; 99291; A9270; J1644; J2919

== ENCOUNTER 2024-11-05 17:21 | Emergency (ER) | payer MEDICARE, OTHER ==
[2024-11-05 17:48] VITALS: BP 155/79; PULSE 95
[2024-11-05] MEDS: Albuterol/Ipratropium 3.0-0.5 MG/3 ML Neb Soln NEB ONE (17:57)
== END 2024-11-05 18:15 | disposition home or self-care (01) ==
LOC: DL.ED 17:21
DX: J44.9 Chronic obstructive pulmonary disease, unspecified (principal); I11.0 Hypertensive heart disease with heart failure; I50.9 Heart failure, unspecified; I25.10 Atherosclerotic heart disease of native coronary artery without angina pectoris; J44.89 Other specified chronic obstructive pulmonary disease; E66.9 Obesity, unspecified; E11.9 Type 2 diabetes mellitus without complications; Z79.4 Long term (current) use of insulin; Z79.84 Long term (current) use of oral hypoglycemic drugs; Z79.899 Other long term (current) drug therapy; Z86.16 Personal history of COVID-19; Z68.39 Body mass index [BMI] 39.0-39.9, adult
CPT/HCPCS: 99284; 99285; A9270

== ENCOUNTER 2024-11-07 09:46 | Inpatient (IN) | payer MEDICARE, OTHER ==
[2024-11-07] MEDS ORDERED: Sodium Chloride 0.9% 10 ML Syringe FLUSH PRN (10:04)
[2024-11-07 10:20] LABS: BASOPHILS PERCENT AUTO 0.3 % (0.0-1.0); EOSINOPHILS PERCENT AUTO 1.0 % (1.0-3.0); LYMPHOCYTES PERCENT AUTO 13.7 % (20.5-50.1); MONOCYTES PERCENT AUTO 8.4 % (2-8); NEUTROPHILS PERCENT AUTO 76.6 % (42.2-75.2); PLATELET COUNT,PLT 181 10^3/uL (150-450); RED BLOOD CELL COUNT 3.64 10^6/uL (4.6-6.2); WHITE BLOOD CELL COUNT,WBC 9.6 10^3/uL (5.0-10.0)
[2024-11-07 10:32] LABS: APPEARANCE,URINE CLEAR (CLEAR); GLUCOSE,URINE NEGATIVE (NEGATIVE); OCCULT BLOOD,URINE TRACE-INTACT (NEGATIVE)
[2024-11-07 10:44] LABS: LACTIC ACID 1.2 mmol/L (0.4-2.0)
[2024-11-07 10:50] LABS: ALANINE AMINOTRANSFERASE,ALT 27.0 U/L (16-63); ASPARTATE AMNIOTRANSFERASE,AST 16.0 U/L (15-37); BILIRUBIN TOTAL 0.4 mg/dL (0.2-1.0); BLOOD UREA NITROGEN,BUN 13.0 mg/dL (7-18); CARBON DIOXIDE,CO2 38.0 mmol/L (21-32); CHLORIDE,CL 103.0 mmol/L (98-107); CREATININE 1.03 mg/dL (0.70-1.30); EST CRCL DRUG DOSING (CG) 62.01 mL/min; GLUCOSE RANDOM 136.0 mg/dL (70-99); POTASSIUM,K 4.4 mmol/L (3.5-5.1); PROTEIN TOTAL,TP 6.7 g/dL (6.4-8.2); SODIUM,NA 142.0 mmol/L (136-145)
[2024-11-07 10:51] LABS: EPITHELIAL CELLS,URINE RARE /HPF (NOT SEEN)
[2024-11-07 10:53] LABS: A/G RATIO 0.63; ESTIMATED GFR 75.0 mL/min (>=60)
[2024-11-07] MEDS: Furosemide 100 MG/10 ML SDV IVPUSH ONE (11:09)
[2024-11-07 13:01] LABS: O2 DELIVERY DEVICE NASAL CANNULA
[2024-11-07 13:02] LABS: BASE EXCESS ARTERIAL 11 mmol/L ((-2)-(+3)); BICARBONATE,ARTERIAL 37.9 mmol/L (22-26); O2 SATURATION ARTERIAL 90 % (95-100); PCO2 ARTERIAL 65 mmHg (35-45); PH,ARTERIAL 7.39 (7.35-7.45); PO2 ARTERIAL 60 mmHg (70-100)
[2024-11-07] MEDS: Iopamidol 755 Mg/ML 100 ML Bottle IVPUSH ONE (13:48)
[2024-11-07] MEDS ORDERED: 50% Dextrose in Water 50 ML Syringe IVPUSH PRN (15:15)
[2024-11-07] MEDS: methylPREDNISolone Sodium Succinate 40 MG/1 ML SDV IVPUSH SCH (15:25)
[2024-11-07 15:33] LABS: IRON,FE 27.0 ug/dL (65-175); PERCENT FE SATURATION 9.2 % (20.0-50.0)
[2024-11-07 16:00] LABS: FOLIC ACID 16.9 ng/mL (8.6-58.9); T4 FREE 0.86 ng/dL (0.76-1.46); TSH ULTRASENSITIVE 2.08 uIU/mL (0.36-3.74)
[2024-11-07] MEDS: Magnesium Sulf/Wat 4 GM/50 mL 4 GM in Premix Bag 1 BAG IV ONE (16:25)
[2024-11-07] MEDS: Aspirin 325 MG Tab.EC PO SCH (16:33)
[2024-11-07] MEDS: Arformoterol 15 MCG/2 ML Neb Soln INH SCH (17:40)
[2024-11-07] MEDS: Budesonide 0.5 MG/2 ML Neb Susp INH SCH (17:40)
[2024-11-07] MEDS: Heparin Sodium 5,000 Units/ML Vial SUBCUT SCH (20:41)
[2024-11-07] MEDS: Insulin Glarg,Human.Rec.Analog 100 Unit/ML 10 ML Vial SUBCUT SCH (20:45)
[2024-11-08 06:54] LABS: BASOPHILS PERCENT AUTO 0.2 % (0.0-1.0); EOSINOPHILS PERCENT AUTO 0.1 % (1.0-3.0); LYMPHOCYTES PERCENT AUTO 6.9 % (20.5-50.1); MONOCYTES PERCENT AUTO 2.4 % (2-8); NEUTROPHILS PERCENT AUTO 90.4 % (42.2-75.2); PLATELET COUNT,PLT 223 10^3/uL (150-450); RED BLOOD CELL COUNT 4.31 10^6/uL (4.6-6.2); WHITE BLOOD CELL COUNT,WBC 8.6 10^3/uL (5.0-10.0)
[2024-11-08 07:10] LABS: A/G RATIO 0.54; ALANINE AMINOTRANSFERASE,ALT 26.0 U/L (16-63); ASPARTATE AMNIOTRANSFERASE,AST 12.0 U/L (15-37); BILIRUBIN DIRECT 0.2 mg/dL (0.0-0.2); BILIRUBIN INDIRECT 0.3; BILIRUBIN TOTAL 0.5 mg/dL (0.2-1.0); BLOOD UREA NITROGEN,BUN 22.0 mg/dL (7-18); CARBON DIOXIDE,CO2 38.0 mmol/L (21-32); CHLORIDE,CL 100.0 mmol/L (98-107); CREATININE 1.18 mg/dL (0.70-1.30); EST CRCL DRUG DOSING (CG) 54.13 mL/min; ESTIMATED GFR 64.0 mL/min (>=60); GLUCOSE RANDOM 294.0 mg/dL (70-99); PHOSPHORUS 3.6 mg/dL (2.6-4.7); POTASSIUM,K 5.3 mmol/L (3.5-5.1); PROTEIN TOTAL,TP 7.7 g/dL (6.4-8.2); SODIUM,NA 140.0 mmol/L (136-145)
[2024-11-08] MEDS ORDERED: Non-Formulary Medication 1 Each (Roflumilast [Roflumilast] 500 MCG Tablet) PO SCH (09:00)
[2024-11-08] MEDS: Insulin Regular, Human 100 Units/ML 10 ML Vial IV ONE (09:25)
[2024-11-08 09:33] LABS: O2 DELIVERY DEVICE NASAL CANNULA; PH,ARTERIAL 7.38 (7.35-7.45)
[2024-11-08 09:34] LABS: BASE EXCESS ARTERIAL 9 mmol/L ((-2)-(+3)); BICARBONATE,ARTERIAL 36.0 mmol/L (22-26); O2 SATURATION ARTERIAL 92 % (95-100); PCO2 ARTERIAL 62 mmHg (35-45); PO2 ARTERIAL 68 mmHg (70-100)
[2024-11-08] MEDS: Furosemide 100 MG/10 ML SDV IVPUSH ONE (14:17)
[2024-11-09] MEDS: methylPREDNISolone Sodium Succinate 40 MG/1 ML SDV IVPUSH SCH (05:14)
[2024-11-09 05:55] LABS: BASOPHILS PERCENT AUTO 0.3 % (0.0-1.0); EOSINOPHILS PERCENT AUTO 0.1 % (1.0-3.0); LYMPHOCYTES PERCENT AUTO 12.2 % (20.5-50.1); MONOCYTES PERCENT AUTO 8.6 % (2-8); NEUTROPHILS PERCENT AUTO 78.8 % (42.2-75.2); PLATELET COUNT,PLT 276 10^3/uL (150-450); RED BLOOD CELL COUNT 3.93 10^6/uL (4.6-6.2); WHITE BLOOD CELL COUNT,WBC 13.2 10^3/uL (5.0-10.0)
[2024-11-09 06:10] LABS: BLOOD UREA NITROGEN,BUN 37.0 mg/dL (7-18); CARBON DIOXIDE,CO2 39.0 mmol/L (21-32); CHLORIDE,CL 101.0 mmol/L (98-107); CREATININE 1.42 mg/dL (0.70-1.30); EST CRCL DRUG DOSING (CG) 44.98 mL/min; GLUCOSE RANDOM 284.0 mg/dL (70-99); POTASSIUM,K 5.1 mmol/L (3.5-5.1); SODIUM,NA 141.0 mmol/L (136-145)
[2024-11-09 06:12] LABS: ESTIMATED GFR 51.0 mL/min (>=60)
[2024-11-09 08:07] VITALS: BP 123/60; PULSE 80
== END 2024-11-09 11:11 | disposition home or self-care (01) | DRG 280 ==
LOC: DL.ED 09:46 → DL.MS 12:12
PROVIDERS: ADMIT Internal Medicine; ATTEND Internal Medicine
PROC: 4A133R1 Monitoring of Arterial Saturation, Peripheral, Percutaneous Approach (ICD-10-PCS; principal; 2024-11-07)
DX: I11.0 Hypertensive heart disease with heart failure (principal); G92.8 Other toxic encephalopathy; I21.4 Non-ST elevation (NSTEMI) myocardial infarction; I50.9 Heart failure, unspecified; H91.90 Unspecified hearing loss, unspecified ear; H54.7 Unspecified visual loss; I48.91 Unspecified atrial fibrillation; I25.10 Atherosclerotic heart disease of native coronary artery without angina pectoris; E66.9 Obesity, unspecified; E11.9 Type 2 diabetes mellitus without complications; E78.00 Pure hypercholesterolemia, unspecified; F32.A Depression, unspecified; J44.89 Other specified chronic obstructive pulmonary disease; Z79.4 Long term (current) use of insulin; D64.9 Anemia, unspecified; G47.33 Obstructive sleep apnea (adult) (pediatric); E87.5 Hyperkalemia; Z95.1 Presence of aortocoronary bypass graft; Z79.82 Long term (current) use of aspirin; Z86.16 Personal history of COVID-19; Z79.52 Long term (current) use of systemic steroids; Z79.899 Other long term (current) drug therapy; Z79.84 Long term (current) use of oral hypoglycemic drugs; I25.2 Old myocardial infarction; Z95.5 Presence of coronary angioplasty implant and graft; Z86.73 Personal history of transient ischemic attack (TIA), and cerebral infarction without residual deficits; Z68.36 Body mass index [BMI] 36.0-36.9, adult; Z68.37 Body mass index [BMI] 37.0-37.9, adult; Z79.02 Long term (current) use of antithrombotics/antiplatelets; Z87.891 Personal history of nicotine dependence
CPT/HCPCS: 36415; 70450; 71045; 80053; 81001; 82607; 82746; 83540; 83550; 83605; 83735; 83880; 84145; 84439; 84443; 84484; 85025; 85379; 93005; 93010; 99285; J1938; 36600; 71275; 80048; 80076; 82140; 82803; 82947; 84100; 84132; 94010; 94640; 94660; 96374; 97161-GP; 97165-GO; 99223; 99232; 99239; A9270-GY; J1644; J1815-GY; J2919; J3475; J3490; Q9967; U0002

== ENCOUNTER 2024-12-11 23:26 | Emergency (ER) | payer MEDICARE, OTHER ==
[2024-12-11 23:29] VITALS: BP 125/59; PULSE 91
[2024-12-11 23:43] LABS: BASOPHILS PERCENT AUTO 0.4 % (0.0-1.0); EOSINOPHILS PERCENT AUTO 3.2 % (1.0-3.0); LYMPHOCYTES PERCENT AUTO 22.9 % (20.5-50.1); MONOCYTES PERCENT AUTO 9.5 % (2-8); NEUTROPHILS PERCENT AUTO 64.0 % (42.2-75.2); PLATELET COUNT,PLT 209 10^3/uL (150-450); RED BLOOD CELL COUNT 3.49 10^6/uL (4.6-6.2); WHITE BLOOD CELL COUNT,WBC 8.1 10^3/uL (5.0-10.0)
[2024-12-12 00:06] LABS: ALANINE AMINOTRANSFERASE,ALT 19.0 U/L (16-63); ASPARTATE AMNIOTRANSFERASE,AST 14.0 U/L (15-37); B-TYPE NATRIURETIC PEPTIDE,BNP 59.0 pg/ml (0-100); BILIRUBIN TOTAL 0.3 mg/dL (0.2-1.0); BLOOD UREA NITROGEN,BUN 15.0 mg/dL (7-18); CARBON DIOXIDE,CO2 34.0 mmol/L (21-32); CHLORIDE,CL 106.0 mmol/L (98-107); CREATININE 0.91 mg/dL (0.70-1.30); EST CRCL DRUG DOSING (CG) 67.98 mL/min; GLUCOSE RANDOM 62.0 mg/dL (70-99); LACTIC ACID 1.4 mmol/L (0.4-2.0); POTASSIUM,K 4.3 mmol/L (3.5-5.1); PROTEIN TOTAL,TP 6.9 g/dL (6.4-8.2); SODIUM,NA 144.0 mmol/L (136-145)
[2024-12-12 00:08] LABS: A/G RATIO 0.82; ESTIMATED GFR 87.0 mL/min (>=60)
[2024-12-12] MEDS ORDERED: Dexamethasone 4 MG/ML SDV IVPUSH ONE (01:18)
== END 2024-12-12 03:30 | disposition home or self-care (01) ==
LOC: DL.ED 23:26
DX: J44.1 Chronic obstructive pulmonary disease with (acute) exacerbation (principal); E11.9 Type 2 diabetes mellitus without complications; E66.9 Obesity, unspecified; I11.0 Hypertensive heart disease with heart failure; I50.9 Heart failure, unspecified; I25.10 Atherosclerotic heart disease of native coronary artery without angina pectoris; I25.2 Old myocardial infarction; I48.91 Unspecified atrial fibrillation; E78.00 Pure hypercholesterolemia, unspecified; Z86.73 Personal history of transient ischemic attack (TIA), and cerebral infarction without residual deficits; Z86.16 Personal history of COVID-19; Z79.899 Other long term (current) drug therapy; Z95.5 Presence of coronary angioplasty implant and graft; Z79.84 Long term (current) use of oral hypoglycemic drugs; Z79.4 Long term (current) use of insulin; Z79.82 Long term (current) use of aspirin; Z68.38 Body mass index [BMI] 38.0-38.9, adult
CPT/HCPCS: 36415; 71045; 80053; 82947; 83605; 83735; 83880; 84145; 84484; 85025; 99284; 99285

== ENCOUNTER 2025-01-04 14:29 | Emergency (ER) | payer MEDICARE, OTHER ==
[2025-01-04 15:00] LABS: O2 DELIVERY DEVICE NASAL CANNULA
[2025-01-04 15:02] LABS: BASOPHILS PERCENT AUTO 0.3 % (0.0-1.0); EOSINOPHILS PERCENT AUTO 2.4 % (1.0-3.0); LYMPHOCYTES PERCENT AUTO 14.8 % (20.5-50.1); MONOCYTES PERCENT AUTO 8.8 % (2-8); NEUTROPHILS PERCENT AUTO 73.7 % (42.2-75.2); PLATELET COUNT,PLT 197 10^3/uL (150-450); RED BLOOD CELL COUNT 3.18 10^6/uL (4.6-6.2); WHITE BLOOD CELL COUNT,WBC 9.8 10^3/uL (5.0-10.0)
[2025-01-04 15:04] LABS: O2 SATURATION VENOUS 74.7 % (60-80); PH,VENOUS 7.32 (7.31-7.41); PO2 VENOUS 46 mmHg (35-42)
[2025-01-04 15:05] LABS: BASE EXCESS VENOUS 4.8 mmol/l ((-2)-(+3)); BICARBONATE,VENOUS 32 mmol/l (19-25)
[2025-01-04 15:06] LABS: PCO2 VENOUS 64 mmHg (41-51)
[2025-01-04] MEDS: Furosemide 40 MG/4 ML VIAL IVPUSH ONE (15:13)
[2025-01-04 15:21] LABS: B-TYPE NATRIURETIC PEPTIDE,BNP 95.0 pg/ml (0-100)
[2025-01-04 15:23] LABS: A/G RATIO 0.7; ALANINE AMINOTRANSFERASE,ALT 25.0 U/L (16-63); ASPARTATE AMNIOTRANSFERASE,AST 14.0 U/L (15-37); BILIRUBIN TOTAL 0.4 mg/dL (0.2-1.0); BLOOD UREA NITROGEN,BUN 19.0 mg/dL (7-18); CARBON DIOXIDE,CO2 33.0 mmol/L (21-32); CHLORIDE,CL 102.0 mmol/L (98-107); CREATININE 1.02 mg/dL (0.70-1.30); EST CRCL DRUG DOSING (CG) 60.65 mL/min; ESTIMATED GFR 76.0 mL/min (>=60); GLUCOSE RANDOM 227.0 mg/dL (70-99); POTASSIUM,K 4.7 mmol/L (3.5-5.1); PROTEIN TOTAL,TP 7.3 g/dL (6.4-8.2); SODIUM,NA 138.0 mmol/L (136-145)
[2025-01-04 16:35] VITALS: BP 126/67; PULSE 98
== END 2025-01-04 16:46 | disposition home or self-care (01) ==
LOC: DL.ED 14:29
DX: J44.1 Chronic obstructive pulmonary disease with (acute) exacerbation (principal); I25.10 Atherosclerotic heart disease of native coronary artery without angina pectoris; I48.91 Unspecified atrial fibrillation; I11.0 Hypertensive heart disease with heart failure; I50.9 Heart failure, unspecified; E11.9 Type 2 diabetes mellitus without complications; E78.00 Pure hypercholesterolemia, unspecified; Z87.891 Personal history of nicotine dependence; Z79.02 Long term (current) use of antithrombotics/antiplatelets; Z79.84 Long term (current) use of oral hypoglycemic drugs; Z79.899 Other long term (current) drug therapy; Z79.82 Long term (current) use of aspirin; Z79.4 Long term (current) use of insulin; Z86.73 Personal history of transient ischemic attack (TIA), and cerebral infarction without residual deficits
CPT/HCPCS: 36415; 71045; 80053; 82803; 83735; 83880; 84484; 85025; 94640; 94660; 96374; 99285-25; A9270-GY; J1938; J7512

== ENCOUNTER 2025-04-12 01:23 | Emergency (ER) | payer MEDICARE, OTHER ==
[2025-04-12] MEDS ORDERED: Sodium Chloride 0.9% 10 ML Syringe FLUSH PRN (02:21)
[2025-04-12] MEDS: methylPREDNISolone Sodium Succinate 125 MG/2 ML SDV IVPUSH ONE (02:44)
[2025-04-12 02:46] LABS: BASOPHILS PERCENT AUTO 0.4 % (0.0-1.0); EOSINOPHILS PERCENT AUTO 3.2 % (1.0-3.0); LYMPHOCYTES PERCENT AUTO 14.2 % (20.5-50.1); MONOCYTES PERCENT AUTO 9.3 % (2-8); NEUTROPHILS PERCENT AUTO 72.9 % (42.2-75.2); PLATELET COUNT,PLT 247 10^3/uL (150-450); RED BLOOD CELL COUNT 3.61 10^6/uL (4.6-6.2); WHITE BLOOD CELL COUNT,WBC 8.5 10^3/uL (5.0-10.0)
[2025-04-12 03:10] LABS: ALANINE AMINOTRANSFERASE,ALT 9.0 U/L (16-63); ASPARTATE AMNIOTRANSFERASE,AST 10.0 U/L (15-37); BILIRUBIN TOTAL 0.3 mg/dL (0.2-1.0); BLOOD UREA NITROGEN,BUN 9.0 mg/dL (7-18); CARBON DIOXIDE,CO2 35.0 mmol/L (21-32); CHLORIDE,CL 101.0 mmol/L (98-107); CREATININE 1.07 mg/dL (0.70-1.30); EST CRCL DRUG DOSING (CG) 56.9 mL/min; GLUCOSE RANDOM 193.0 mg/dL (70-99); POTASSIUM,K 4.5 mmol/L (3.5-5.1); PROTEIN TOTAL,TP 7.7 g/dL (6.4-8.2); SODIUM,NA 141.0 mmol/L (136-145)
[2025-04-12 03:15] LABS: A/G RATIO 0.51; ESTIMATED GFR 71.0 mL/min (>=60)
[2025-04-12 04:23] VITALS: BP 146/57; PULSE 80
== END 2025-04-12 04:10 | disposition home or self-care (01) ==
LOC: DL.ED 01:23
DX: J44.1 Chronic obstructive pulmonary disease with (acute) exacerbation (principal); I11.0 Hypertensive heart disease with heart failure; I50.9 Heart failure, unspecified; I48.91 Unspecified atrial fibrillation; I25.10 Atherosclerotic heart disease of native coronary artery without angina pectoris; E11.9 Type 2 diabetes mellitus without complications; Z79.82 Long term (current) use of aspirin; Z79.4 Long term (current) use of insulin; Z79.899 Other long term (current) drug therapy; Z79.84 Long term (current) use of oral hypoglycemic drugs; Z86.73 Personal history of transient ischemic attack (TIA), and cerebral infarction without residual deficits
CPT/HCPCS: 71046; 80053; 85025; 87428; 96374; 99285; A9270; 99284; J2919